=== PATIENT | female | born 1950 | race Caucasian/White ===

== ENCOUNTER 2023-07-15 06:26 | Inpatient (IN) | payer MEDICARE, OTHER, SELFPAY ==
[2023-07-15] VITALS (17 sets, daily range): BP systolic 20–161; BP diastolic 54–135; BMI 27.7
[2023-07-15 10:02] LABS: Glucose - Point of Care 159 mg/dl (70-99)
[2023-07-15] MEDS: NORMOSOL-R 1000 IV (10:04)
--- NOTE | 2023-07-15 10:24 | W.SUR.PREOP ---
Pre-Operative Surgical Note
-
I have examined this patient prior to the performance of the scheduled procedure.
The patient's condition is unchanged from the time of the current History and
Physical and the patient is able to undergo the scheduled procedure.
--- NOTE | 2023-07-15 12:01 | W.IMMPOSTOP ---
Surgical Immed Post Op Note
-
Primary Surgeon: BETSY Mandujano MD
Assisting Surgeon:
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
Post-op Diagnosis: same
Procedure Performed: sternal wound debridement, removal of hardware, bilateral pectoralis muscle flaps, partial rib resection,
Anesthesia Type: General
Specimen / Cultures: fluid and tissue for culture
EBL: 30 cc
complications: None
Operative Findings: as expected
--- NOTE | 2023-07-15 12:03 | OR.RPT ---
Operative Report
Operative Report
Surgeon: BETSY Mandujano MD
Preoperative diagnosis: Recurrent sternal infection
Postoperative diagnosis: Same
Procedure:
1. Debridement of sternum with removal of plates and screws, wire
2. Partial rib resection
3. Bilateral pectoralis muscle flaps
Anesthesia: General
Complications: None
EBL: 30 cc
Microbiology: Bone for culture, tissue for culture, aerobic and anaerobic swabs
Indications for procedure: Patient is a multiply comorbid 73-year-old female who underwent prior CABG complicated by sternal wound dehiscence. She required multiple debridements, removal of hardware, and ultimately flap reconstruction of the chest.
Culture data grew out Pseudomonas and E. coli. She underwent 6 weeks of IV antibiotic therapy. She followed a routine course thereafter and healed well. She presented in the office with a draining sinus on the superior aspect of her sternotomy
incision. Discussion was had about need for debridement, removal of residual hardware, reelevation of pectoralis muscle flaps and Closure over drain. Consents were signed accordingly and all risks were reviewed. She understood she would likely
need another course of IV antibiotics for presumed osteomyelitis.
Procedure in detail: Patient was identified in the preoperative area and the surgical site was confirmed to be the chest. All questions answered consents were confirmed. Patient is taken back to the operating room placed supine on the table.
Anesthesia was induced and endotracheal tube was placed. The patient was prepped and draped in usual sterile fashion using Betadine solution. Timeout for patient safety was performed was confirmed that preoperative antibiotics were administered
and bilateral SCDs were placed. Procedure began first with the infiltration of local anesthesia with 1% lidocaine with epinephrine mixed with quarter percent Marcaine. An elliptical skin excision was drawn around the midline sinus on the superior
aspect of the prior sternotomy scar. This was incised with a 15 blade and dissection continued around the dura and the sinus to the level of the sternum using Bovie electrocautery. At the base of the sinus was a titanium plate with 4 screws. Just
superior to this was a residual wire. These were both removed and a debridement was performed by removing all granulation tissue. Culture swabs were taken and both bone and tissue were sent for culture. A rongeur was then used to remove the bone
of the manubrium. Inspection of the wound bed showed that a right third rib showed evidence of chronic osteomyelitis. As such a partial rib resection was performed removing all devitalized bone. The wound was then thoroughly irrigated with 6 L of
normal saline solution. Meticulous hemostasis was ensured and bilateral pectoralis muscle flaps were raised off of the chest wall. This allowed for medial mobilization of the bilateral pectoralis muscles over the midline to cover the exposed bone.
Space and sutured at the skin with a 2-0 Prolene. The muscles were closed at the midline with a series of 0 Vicryl sutures. The deep closure was then performed with a series of 2-0 Vicryl sutures followed by 2-0 nylon sutures for vertical
mattress skin closure. Patient tolerated the procedure well was performed without complication.
[2023-07-15 12:23] LABS: Glucose - Point of Care 158 mg/dl (70-99)
[2023-07-15] MEDS: TORADOL 15 MG IV (12:51)
[2023-07-15] MEDS: DILAUDID 0.25 MG IV (13:05)
--- NOTE | 2023-07-15 14:11 | CON.ID ---
Consultation
-
Date/Time Consultation Requested: 07/15/2023 1207
Date/Time Consultation Performed: 07/15/23 1330
Requesting Provider: Dr. Mandujano
Performing Provider: Dr. Gregory
Reason for Consultation: Sternal infection
Chief Complaint / Past History
History of Present Illness
Tish Montero is a 73-year-old female being evaluated at the request of Dr. Mandujano regarding a sternal wound and suspected osteomyelitis. History is obtained from chart review, along with patient interview.
The patient has a significant past medical history of diabetes and underwent a CABG on 10/22/2022. She had postop complication with atrial fibrillation, ultimately requiring a pacemaker placement. She was discharged on October 26, 2022, but readmitted
on 11/13 through 11/15 with an inframammary wound, and a small inferior sternal wound. She was readmitted on 11/21 and ultimately underwent debridement of the area, with a discharge on 12/03 on a 6-week course of IV antibiotics. On 12/25/2022 she
underwent excisional debridement with VAC placement, and on 01/07/2023 she underwent an omental flap with split thickness skin grafting and further bone debridement.
She reports that she was doing well until approximately 1 week ago when she developed swelling at the top of her prior incision. Initially it was dime sized, but it became progressively swollen, red and somewhat tender. She was seen in cardiac
rehab, and physical therapy there suggested that she call her Plastic Surgeon. She sent pictures, and she was brought in yesterday, and today has undergone complete removal of retained hardware and bone debridement and culture.
She reports 1 or 2 episodes of fever last week. Otherwise, she has felt well.
Past History
Additional Past Medical History:
DM
HTN
CARLOS
Asthma
CAD
Fibromyalgia
Restless leg syndrome
Additional Past Surgical History:
CABG (10/22/2022
PPM placement (10/24/2022)
Right humerus ORIF
Right TKA
Right shoulder replacement
Thyroglossal duct cyst excision
Allergy History:
peach Allergy (Verified 07/15/23 09:46)
Itching
strawberry Allergy (Verified 07/15/23 09:46)
Itching
Sulfa (Sulfonamide Antibiotics) Allergy (Verified 07/15/23 09:46)
Hives
Medications Reviewed: Yes
Current Antibiotics:
Cefazolin x1
Social History
Tobacco: Non-Smoker
Drug: None
Personal:
Living: With Family
Employment: Retired
Family History
Family History: Not Pertinent
Review of Systems
Vital Signs
Temp Pulse Resp BP Pulse Ox
97.3 F 76 17 141/61 98
07/15/23 12:01 07/15/23 13:45 07/15/23 13:45 07/15/23 13:45 07/15/23 13:45
Physical Exam
Physical Exam
Constitutional: No Acute Distress and Non-toxic
Head: Normocephalic
Eyes: Pupils Equal, Pupils Round, No Conjunctival Hemorrhage and Sclera Anicteric
Oral: No Thrush and No Ulcers
Cardiovascular: Regular Rate and S1/S2; Negative S3/S4
Pulmonary: Clear; Negative Wheezes, Rales or Rhonchi
Gastrointestinal: Soft, Non Tender, Non Distended, Normal Bowel Sounds and No Guarding
Extremities: Negative Edema, Cyanosis or Erythema
Wound: Other (Sternal wound area dressed. No strikethrough.)
Neurological: Awake, Alert and Oriented
Microbiology Results
Micro:
07/15/23 11:04 Wound Culture - Pending
Chest - Unspecified Gram Stain - Pending
07/15/23 11:04 Tissue Culture - Pending
Chest - Unspecified Gram Stain - Pending
07/15/23 11:04 Tissue Culture - Pending
Bone Gram Stain - Pending
07/15/23 11:04 Anaerobic Culture - Pending
Chest - Unspecified
07/15/23 11:04 Anaerobic Culture - Pending
Chest Fluid
07/15/23 11:04 Anaerobic Culture - Pending
Bone
Wound/abscess/other Cult Final 11/21/22 1637
Moderate Pseudomonas aeruginosa
Moderate Escherichia coli
1. Pseudomonas aeruginosa
M.I.C. RX
--------- ---
Cefepime <=2 S
Ceftazidime 4 S
Ciprofloxacin 2 R
Gentamicin <=4 S
Levofloxacin 4 R
Meropenem <=1 S
Piperacillin/Tazobactam <=16 S
Tobramycin <=4 S
2. Escherichia coli
M.I.C. RX
--------- ---
Amoxicillin/Potas. Clavulanate <=8/4 S
Ampicillin <=8 S
Ampicillin/Sulbactam <=8/4 S
Cefazolin <=2 S
Ertapenem <=0.5 S
Ciprofloxacin <=0.25 S
Gentamicin <=4 S
Levofloxacin <=0.5 S
Meropenem <=1 S
Piperacillin/Tazobactam <=16 S
Tobramycin <=4 S
Trimethoprim/Sulfamethoxazole <=2/38 S
Assessment / Plan
Sternal wound
- S/p removal of hardware and bone debridement
Suspected recurrent osteomyelitis
DM
HTN
CARLOS
Asthma
CAD
Fibromyalgia
Restless leg syndrome
Recommendations:
Prior wound cultures reviewed (Pseudomonas aeruginosa and E. coli)
Begin cefepime 2 g IV every 12 hours.
Await further culture data to guide antimicrobial therapy.
Await bone pathology.
Counseled patient that an additional 6-week course of antibiotics may be necessary in the treatment of this infection.
--- NOTE | 2023-07-15 14:33 | PTCARENOTE ---
Patient admitted from pacu post debridement of chest wall sternal wound with hardware removal.The patient is alert and reports her pain at a 4 out of 10.The chest wall dressing is dry and intact with no drainage.Vital signs are stable.The patient is
in her bed with the call mann in reach.
[2023-07-15] MEDS: ULTRAM 50 MG PO (16:38)
[2023-07-15] MEDS: STERILE WATER FOR INJECTION 10 ML IV (16:40)
[2023-07-15] MEDS: MAXIPIME 2000 MG IV (16:40)
[2023-07-15] MEDS: FLUSH (NSS) 2 FLUSH IV (16:41)
[2023-07-15 16:44] LABS: Glucose - Point of Care 252 mg/dl (70-99)
--- NOTE | 2023-07-15 16:49 | CON.HOSP ---
Consultation
-
Date/Time Consultation Requested: 07/15/23
Requesting Provider: Dr Mandujano
Performing Provider: Dr Barrientos
Reason for Consultation: Medical manegement
Family Physician
-
Family Physician: NO INTERVIEW UNKNOWN
Chief Complaint
-
Sternal infection.
Presented for wound debridement
History of Present Illness
Patient is a 73 years old female with history of CAD status post CABG with wound dehiscence in October of 2022 she had postoperative complication with atrial fibrillation requiring pacemaker placement. She had to be readmitted in November 2022 with
complications including wound dehiscence. She underwent debridement and was discharged on 6 weeks of antibiotic therapy. She underwent additional debridement on December 2022 followed with wound VAC and omental flap with split-thickness skin
grafting.
She was doing well up until about a week ago when patient found to have erythema and induration in the middle of the sternum with fluctuance. Area was progressively swollen with later self drained with purulence. She reported single episode of
chills at home, although had no documented fever. She was seen in the office by plastic surgery and given findings were scheduled for admission and elective wound debridement. Otherwise patient remains relatively well in terms of her cardiac
status undergoing cardiac rehab.
She underwent wound debridement today with complete hardware removal.
Medical History
Past Medical History
Past Medical History: Reports Arrhythmia, CAD, Fibromyalgia and NIDDM
Past Surgical History: Reports Cardiac
Social History
Tobacco: Non-smoker
Alcohol: None
Drug: None
Personal:
Living: With Family
Allergies / Home Medications
Allergies reflects when Allergies were last updated in [facility].
Home Medications with original date entered in [facility]
Allergy/Medication List:
Allergies
Allergy/AdvReac Type Severity Reaction Status Date / Time
peach Allergy Itching Verified 07/15/23 09:46
strawberry Allergy Itching Verified 07/15/23 09:46
Sulfa (Sulfonamide Allergy Hives Verified 07/15/23 09:46
Antibiotics)
Home Medications
cyclobenzaprine 10 mg tablet 20 mg PO HS Pain 10/02/22
ezetimibe 10 mg tablet 10 mg PO DAILY High Cholesterol 10/02/22
fexofenadine 180 mg tablet 180 mg PO DAILY Allergies 10/02/22
isosorbide mononitrate 30 mg tablet,extended release 24 hr 30 mg PO DAILY Blood Pressure 10/02/22
latanoprost 0.005 % eye drops 1 drp BOTH EYES HS Eye Condition 10/02/22
montelukast 10 mg tablet (Singulair) 10 mg PO DAILY Allergies 10/02/22
omega-3 acid ethyl esters 1 gram capsule (Lovaza) 1 cap PO QPM High Cholesterol 10/02/22
ropinirole 0.25 mg tablet 1.5 mg PO DAILY@1900 Restless Leg Syndrome 10/02/22
acetaminophen 500 mg tablet (Tylenol Extra Strength) 1,000 mg PO Q6HPRN PRN mild pain 10/16/22
cholecalciferol (vitamin D3) 50 mcg (2,000 unit) capsule (Vitamin D3) 50 mcg PO DAILY Supplement 10/16/22
vit C 250 mg-vit E 90 mg-zinc 40 mg-copper 1 qy-[id number]-nibzgd capsule (PreserVision AREDS-2) 1 cap PO BID Supplement 10/16/22
albuterol sulfate 90 mcg/actuation aerosol inhaler 2 puff inhalation R QIDPRN PRN sob/wheezing 11/13/22
pantoprazole 40 mg tablet,delayed release 40 mg PO DAILY Gastrointestinal Issue 12/02/22
aspirin 81 mg tablet,delayed release 81 mg PO DAILY Blood Clot Prevention/Tx 01/07/23
atorvastatin 80 mg tablet 80 mg PO HS High Cholesterol 01/07/23
metoprolol tartrate 25 mg tablet 12.5 mg PO BID Blood Pressure 01/07/23
canagliflozin 150 mg-metformin 1,000 mg tablet (Invokamet) 1 tab PO BID Diabetes 07/14/23
cyanocobalamin (vitamin B-12) 1,000 mcg/mL injection solution 1,000 mcg IM QMONTH Vitamin B-12 deficiency 07/14/23
ferrous sulfate 325 mg (65 mg iron) tablet (FeroSul) 325 mg PO DAILY Supplement 07/14/23
fluticasone propionate 50 mcg/actuation nasal spray,suspension (Flonase Allergy Relief) 1 spray intranasal DAILY Allergies 07/14/23
glimepiride 2 mg tablet 2 mg PO QPM Diabetes 07/14/23
glimepiride 4 mg tablet 4 mg PO DAILY Diabetes 07/14/23
polyethylene glycol 3350 17 gram oral powder packet (HealthyLax) 17 g PO PRN PRN constipation 07/14/23
potassium chloride 20 mEq tablet,extended release 20 meq PO DAILY 07/14/23
tramadol 50 mg tablet 100 mg PO TID 07/14/23
furosemide 40 mg tablet 40 mg PO DAILY Fluid Retention/Swelling 07/15/23
Review of Systems
-
A 12 point Review of Systems was completed except as noted: Yes
Physical Exam
Vital Signs
Vital Signs
Temp Pulse Resp BP Pulse Ox
98.4 F 81 16 139/67 96
07/15/23 15:23 07/15/23 15:23 07/15/23 15:23 07/15/23 15:23 07/15/23 14:30
Physical Exam
General: Well Developed, Well Nourished and No Apparent Distress
HEENT: Normocephalic, Moist Mucous Membranes and Atraumatic
Respiratory: Clear
Cardiac: S1/S2 and Regular Rhythm; Negative Murmur or Rub
GI: Soft, Non Tender, Non Distended and Normal Bowel Sounds
Rectal: Deferred by Provider
Musculoskeletal: No Clubbing, No Cyanosis and No Edema
Skin: Negative Rash
Neuro: Nonfocal/Grossly Intact
Impression / Plan
-
Impression:
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
Status post debridement and hardware removal on 07/14
Conditions prior to admission:
CAD status post CABG x 4 10/27
Postoperative pericarditis
Postoperative atrial fibrillation with sinus pauses requiring pacemaker on 10/27
Chronic CHF preserved EF.
-ECHO 10/24/22: EF 55 to 60%, mild concentric LVH, mild , mild TR, no significant change compared to prior
Known IDDM.
Hypertension
Dyslipidemia
Obesity
Obstructive sleep apnea on CPAP.
Fibromyalgia
Asthma without exacerbation
Pratt esophagus
Plan:
Recurrent sternal wound infection with osteomyelitis
Status postdebridement on 07/14
Prior culture from 11/27 consistent with Pseudomonas and E. coli
ID consulted
Initiated on cefepime.
Continue wound care.
Coronary artery disease.
Stable
Continue aspirin, atorvastatin, metoprolol, Imdur
Chronic CHF preserved EF.
Compensated volume status.
Continue furosemide and potassium supplementation.
Monitor volume status closely
Asthma without exacerbation
Continue Singulair
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
Fibromyalgia, chronic pain
Adjust analgesic regimen accordingly
Continue Tylenol, tramadol wean off IV narcotics.
Diabetes
Update hemoglobin A1c.
Basal bolus protocol for tight blood glucose control regimen in the settings of recurrent infection
Continue preadmission regimen including Invokana, metformin, glimepiride.
[2023-07-15] MEDS: NOVOLOG FLEXPEN-LOW RESISTANCE 3 UNITS SC (16:55)
[2023-07-15] MEDS: TYLENOL 1000 MG PO (18:33)
[2023-07-15] MEDS: SINGULAIR 10 MG PO (18:33)
[2023-07-15] MEDS: PROTONIX 40 MG PO (18:33)
[2023-07-15] MEDS: IMDUR (EXTENDED RELEASE) 30 MG PO (18:33)
[2023-07-15] MEDS: REQUIP 1.5 MG PO (18:34)
[2023-07-15] MEDS: AMARYL 2 MG PO (18:34)
[2023-07-15] MEDS: LOPRESSOR 12.5 MG PO (20:35)
[2023-07-15 21:08] LABS: Glucose - Point of Care 358 mg/dl (70-99)
[2023-07-15] MEDS: NOVOLOG FLEXPEN 5 UNITS SC (21:49)
[2023-07-15] MEDS: XALATAN OPHTHALMIC SOLUTION 1 DROP BOTH EYES (22:05)
[2023-07-15] MEDS: FLEXERIL 20 MG PO (22:05)
[2023-07-15] MEDS: LIPITOR 80 MG PO (22:05)
[2023-07-15 23:53] LABS: Glucose - Point of Care 337 mg/dl (70-99)
[2023-07-16] VITALS (7 sets, daily range): BP systolic 132–156; BP diastolic 56–82; PULSE 80; BMI 28.2
[2023-07-16] MEDS: NOVOLOG FLEXPEN 5 UNITS SC (00:04)
[2023-07-16] MEDS: TYLENOL 1000 MG PO ×5 (00:05→23:26)
[2023-07-16 02:04] LABS: Glucose - Point of Care 273 mg/dl (70-99)
--- NOTE | 2023-07-16 02:10 | PTCARENOTE ---
Patient blood sugar at HS '358', Kermit Aldridge notified, 5 units Novolog ordered and administered; rechecked blood sugar in 2 hours with result '337', Kermit Gloria ordered additional 5 units Novolog and was administered; rechecked
blood sugar in 2 hours with result '273'; no new orders.
[2023-07-16] MEDS: TORADOL 15 MG IV (03:37)
[2023-07-16] MEDS: MAXIPIME 2000 MG IV ×2 (04:11→16:27)
[2023-07-16] MEDS: STERILE WATER FOR INJECTION 10 ML IV ×2 (04:11→16:27)
[2023-07-16 07:27] LABS: Glucose - Point of Care 255 mg/dl (70-99)
[2023-07-16] MEDS: NOVOLOG FLEXPEN-LOW RESISTANCE 3 UNITS SC (08:16)
[2023-07-16] MEDS: LOPRESSOR 12.5 MG PO ×2 (08:17→20:35)
[2023-07-16] MEDS: ZETIA 10 MG PO (08:17)
[2023-07-16] MEDS: PROTONIX 40 MG PO (08:17)
[2023-07-16] MEDS: FEOSOL 325 MG PO (08:17)
[2023-07-16] MEDS: AMARYL 4 MG PO (08:17)
[2023-07-16] MEDS: KCL 20 MEQ PO (08:17)
[2023-07-16] MEDS: LASIX 40 MG PO (08:17)
[2023-07-16] MEDS: IMDUR (EXTENDED RELEASE) 30 MG PO (08:17)
[2023-07-16] MEDS: ASPIR LOW (ENTERIC COATED) 81 MG PO (08:17)
[2023-07-16] MEDS: SINGULAIR 10 MG PO (08:18)
[2023-07-16] MEDS: VITAMIN D3 (cholecalciferol) 50 MCG PO (08:18)
[2023-07-16 09:40] LABS: Glycohemoglobin (HgbA1c) 7.9 % (4.0-5.6)
--- NOTE | 2023-07-16 10:16 | W.PN.ID1 ---
Date of Service
Date of Service: July 16, 2023
Today's Communication
Continue antibiotics. Add micafungin.
Assessment / Plan
Sternal wound
- S/p removal of hardware and bone debridement
- cultures pending
Suspected recurrent osteomyelitis
DM
HTN
CARLOS
Asthma
CAD
Fibromyalgia
Restless leg syndrome
Recommendations:
Prior wound cultures reviewed (Pseudomonas aeruginosa and E. coli)
Continue cefepime 2 g IV every 12 hours. Given recovery of Jyoti, will begin micafungin.
Await further culture data to guide antimicrobial therapy.
Await bone pathology.
Counseled patient that an additional 6-week course of antibiotics may be necessary in the treatment of this infection.
����������������������������������������������������������
Chief Complaint
-: Other (Sternal wound)
Subjective / Review of Systems
Review of Systems: No Fever and No Chills
Vital Signs / Physical Exam
Vital Signs
Vital Signs
Temp Pulse Resp BP Pulse Ox
97.8 F 70 17 133/56 96
07/16/23 07:00 07/16/23 07:00 07/16/23 07:00 07/16/23 07:00 07/16/23 07:00
Physical Exam
Constitutional: No Acute Distress, Comfortable and Non-toxic
Eyes: Sclera Anicteric
Cardiovascular: S1/S2; Negative S3/S4
Pulmonary: Non Labored
Gastrointestinal: Soft, Non Tender, Non Distended and Normal Bowel Sounds
Skin: Warm and Dry
Wound: Other (Sternal wound area dressed. No periwound erythema noted.)
Neurological: Awake and Alert
Psychological: Calm
Objective Data
Lab Data
Most recent labs reviewed.
Micro Results:
07/15/23 11:04 Tissue Culture - Preliminary
Chest - Unspecified Gram Stain - Final
07/15/23 11:04 Anaerobic Culture - Preliminary
Chest - Unspecified Culture pending. Anaerobic cultures are examined after 3
days incubation. Additional information to follow.
07/15/23 11:04 Anaerobic Culture - Preliminary
Bone Culture pending. Anaerobic cultures are examined after 3
days incubation. Additional information to follow.
07/15/23 11:04 Tissue Culture - Preliminary
Bone Jyoti albicans
Gram Stain - Preliminary
07/15/23 11:04 Anaerobic Culture - Preliminary
Chest Fluid Culture pending. Anaerobic cultures are examined after 3
days incubation. Additional information to follow.
07/15/23 11:04 Wound Culture - Preliminary
Chest - Unspecified No growth
Gram Stain - Preliminary
Wound/abscess/other Cult Final 11/21/22 1637
Moderate Pseudomonas aeruginosa
Moderate Escherichia coli
1. Pseudomonas aeruginosa
M.I.C. RX
--------- ---
Cefepime <=2 S
Ceftazidime 4 S
Ciprofloxacin 2 R
Gentamicin <=4 S
Levofloxacin 4 R
Meropenem <=1 S
Piperacillin/Tazobactam <=16 S
Tobramycin <=4 S
2. Escherichia coli
M.I.C. RX
--------- ---
Amoxicillin/Potas. Clavulanate <=8/4 S
Ampicillin <=8 S
Ampicillin/Sulbactam <=8/4 S
Cefazolin <=2 S
Ertapenem <=0.5 S
Ciprofloxacin <=0.25 S
Gentamicin <=4 S
Levofloxacin <=0.5 S
Meropenem <=1 S
Piperacillin/Tazobactam <=16 S
Tobramycin <=4 S
Trimethoprim/Sulfamethoxazole <=2/38 S
--- NOTE | 2023-07-16 11:16 | CM ---
CM following re: discharge planning.
Reviewed pt's chart, met with pt.
Pt is a 73 year old female, admitted with primary dx of POD#1 wound debridement with complete hardware removal.
Pt reports she livers with in a ranch home, 2 steps to enter, has 2 supportive children. Pt described herself as independent in all areas [employer], ambulates with a cane and a walker, has C-pap. Pt reports she is known to [facility] but had
[facility]. Pt stated if she will need IV antibiotics again at home then she has no choice just to have [facility]. Per pt if she does not need IV antibiotics at home then she prefers [facility].
PCP: Drea
Pharmacy: [facility]
D/C plan: home with VN and family support. Family to transport at discharge.
CM will follow with discharge plan updates as hospitalization progresses
--- NOTE | 2023-07-16 11:37 | PN.CDI ---
CDI
- -
CDI:
Physician Documentation Request
Admit Date: 07/15/23 06:26
Dear Doctor Nazia,
Please review the following and provide your response in the progress notes.
Clinical Indicators:
- 07/14 Operative Report procedure 'Debridement of sternum'
- 'a debridement was performed by removing all granulation tissue'
Could you provide, in the progress notes further clarification regarding the debridement.
Please specify the type of debridement performed:
1. Excisional Debridement - defined as removal by excision of devitalized tissue, necrosis or slough
2. Non-excisional debridement - defined as removal of devitalized tissue, necrosis or slough by such methods as irrigation, brushing, scrubbing or washing.
If the debridement was excisional, please also include:
1. Type of instrument used (#11 blade, #15 blade etc.)
2. What was excised (necrotic tissue, gangrenous tissue, slough etc.)
For excisional or non-excisional, please also include:
1. Depth of debridement (skin, subcutaneous tissue, fascia, muscle, bone etc)
2. Size and appearance of the wound (L, W, D, color of wound, drainage)
Use of terms such as suspected, likely, concern for, or probable (associated with a specific diagnosis that is being evaluated, monitored, or treated as if it exists) are acceptable and can be coded in the inpatient setting, when documented at the
time of discharge.
Thank you,
Kelly Carr RN
CDI Specialist
Please use your independent medical judgment in providing your response.
--- NOTE | 2023-07-16 11:47 | W.PN.PLAS ---
Today's Communication
-
discharge pending final micro
Progress Note
Subjective Data
Doing well, pain well-controlled, ambulating
Subjective: Tolerating Regular Diet, Ambulatory and Patient Voided
Objective Data
Vital Signs
Temp Pulse Resp BP Pulse Ox
97.8 F 70 17 133/56 96
07/16/23 07:00 07/16/23 07:00 07/16/23 07:00 07/16/23 07:00 07/16/23 07:00
Intake and Output
07/15/23 07/16/23 07/17/23
06:59 06:59 06:59
Intake Total 1840 / 1840 240 / 240
Output Total 65 / 65
Balance 1775 / 1775 240 / 240
Intake:
Oral fluids 1440 / 1440 240 / 240
IV fluids (Total) 400 / 400
Normosol 400 / 400
Amount instilled into Drain ( 0 / 0
Total)
Middle Chest Richardson-Reilly A 0 / 0
Output:
Drain Output (Total) 65 / 65
Middle Chest Richardson-Reilly A 65 / 65
Other:
Number of approximated MODERATE 3 1
amounts of urine
Number of approximated LARGE 1
amounts of urine
physical exam:
No acute distress
No increased work of breathing
Midline sternal wound intact with dressing in place
JURGEN drain serosanguineous
No undrained fluid collections
Microbiology Results
07/15/23 11:04 Chest - Unspecified Tissue Culture - Preliminary
07/15/23 11:04 Chest - Unspecified Gram Stain - Final
07/15/23 11:04 Chest - Unspecified Anaerobic Culture - Preliminary
Culture pending. Anaerobic cultures are examined after 3
days incubation. Additional information to follow.
07/15/23 11:04 Bone Anaerobic Culture - Preliminary
Culture pending. Anaerobic cultures are examined after 3
days incubation. Additional information to follow.
07/15/23 11:04 Bone Tissue Culture - Preliminary
Jyoti albicans
07/15/23 11:04 Bone Gram Stain - Preliminary
07/15/23 11:04 Chest Fluid Anaerobic Culture - Preliminary
Culture pending. Anaerobic cultures are examined after 3
days incubation. Additional information to follow.
07/15/23 11:04 Chest - Unspecified Wound Culture - Preliminary
No growth
07/15/23 11:04 Chest - Unspecified Gram Stain - Preliminary
Assessment / Plan
Status post sternal wound debridement for recurrent presumed osteomyelitis secondary to hardware infection after CABG complicated by wound dehiscence, status post prior omental flap closure
underwent excisional debridement of the sternum including partial rib resection and removal of hardware including 1 plate and 4 screws as well as 1 wire
Micro culture sent
ID following
Hospitalist on board
Awaiting final antibiotic recommendations and coordination for likely long-term antibiotics
[2023-07-16 12:23] LABS: Glucose - Point of Care 312 mg/dl (70-99)
[2023-07-16] MEDS: NOVOLOG FLEXPEN-LOW RESISTANCE 4 UNITS SC ×2 (12:27→17:18)
[2023-07-16] MEDS: LANTUS 0.0700000000000000067 UNITS SC (12:28)
[2023-07-16] MEDS: MYCAMINE 105 MG IV (13:24)
[2023-07-16 14:10] LABS: % Basophils 0.4 % (0-2); % Immature Granulocytes 0.4 % (0-0.5); % Lymphocytes 19.3 % (20.5-51.1); % Monocytes 11.9 % (1.7-9.3); Absolute Eosinophils 0.2 10^3/uL (0-0.7); Absolute Lymphocytes 1.9 10^3/uL (1.2-3.4); Absolute Monocytes 1.2 10^3/uL (0.1-0.6); Absolute Neutrophils 6.6 10^3/uL (1.4-6.5); Hematocrit 33.8 % (37.0-47.0); Hemoglobin 10.3 g/dL (12.0-16.0); Mean Corp Hgb Conc. 30.5 g/dL (33.0-37.0); Mean Corpuscular Hgb 22.9 pg (27.0-31.0); Mean Corpuscular Volume 75.1 fL (81.0-99.0); Mean Platelet Volume 9.5 fL (7.4-10.4); Nucleated Red Blood Cells % 0 %; Platelet Count 275 10^3/uL (130-400); Red Cell Dist. Width 20.2 % (11.5-14.5); White Blood Cell Count 9.9 10^3/uL (4.8-10.8)
[2023-07-16 14:20] LABS: Blood Urea Nitrogen 26 mg/dl (7-17); Calcium 9.7 mg/dl (8.4-10.2); Carbon Dioxide 23 mmol/L (22-30); Chloride 100 mmol/L (98-107); Estimated Creatinine Clearance 51 ml/min; Glucose 294 mg/dl (70-99); Potassium 4.7 mmol/L (3.5-5.1); Sodium 133 mmol/L (135-145); eGFR 58.75
--- NOTE | 2023-07-16 15:52 | W.PN.HOSP.TC ---
Today's Communication/Plan
-
On IV antibiotics pending final cultures
Persistent hyperglycemia noted. Continue current oral regimen with addition of Lantus adjusting dose accordingly.
Assessment / Plan
Assessment / Plan
Impression:
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
Status post debridement and hardware removal on 07/14
Conditions prior to admission:
CAD status post CABG x 4 10/27
Postoperative pericarditis
Postoperative atrial fibrillation with sinus pauses requiring pacemaker on 10/27
Chronic CHF preserved EF.
-ECHO 10/24/22: EF 55 to 60%, mild concentric LVH, mild , mild TR, no significant change compared to prior
Known IDDM.
Hypertension
Dyslipidemia
Obesity
Obstructive sleep apnea on CPAP.
Fibromyalgia
Asthma without exacerbation
Pratt esophagus
Plan:
Recurrent sternal wound infection with osteomyelitis
Status postdebridement on 07/14
Prior culture from 11/27 consistent with Pseudomonas and E. coli
Preliminary wound culture with Jyoti albicans
Initiated on cefepime with addition of micafungin
Continue wound care.
Coronary artery disease.
Stable
Continue aspirin, atorvastatin, metoprolol, Imdur
Chronic CHF preserved EF.
Compensated volume status.
Continue furosemide and potassium supplementation.
Monitor volume status closely
Asthma without exacerbation
Continue Singulair
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
Fibromyalgia, chronic pain
Adjust analgesic regimen accordingly
Continue Tylenol, tramadol wean off IV narcotics.
Diabetes
Persistent hyperglycemia noted
Update hemoglobin A1c. 7.9
Basal bolus protocol for tight blood glucose control regimen in the settings of recurrent infection
Continue preadmission regimen including Invokana, metformin, glimepiride.
And Lantus at bedtime and titrate dose
Anticipated Discharge: 24 - 48 hours
Subjective/Interval History
-
Date of Service: July 16, 2023
Objective Data
-
Labs:
Laboratory Results
07/16/23
13:46
WBC 9.9
Hgb 10.3 L
Hct 33.8 L
Plt Count 275
Sodium 133 L
Potassium 4.7
Chloride 100
Carbon Dioxide 23
BUN 26 H
Creatinine 1.0
Glucose 294 H
Calcium 9.7
Vital Signs:
Vital Signs
Temp Pulse Resp BP Pulse Ox
97.9 F 70 17 140/61 96
07/16/23 14:55 07/16/23 14:55 07/16/23 14:55 07/16/23 14:55 07/16/23 14:55
I&O
07/15/23 07/16/23 07/17/23
06:59 06:59 06:59
Intake Total 1840 / 1840 240 / 240
Output Total 65 / 65
Balance 1775 / 1775 240 / 240
Physical Exam
-
General: Well Developed and No Apparent Distress
HEENT: Normocephalic, Atraumatic and Moist Mucous Membranes
Respiratory: Clear to Auscultation
Cardiac: Regular Rhythm and S1/S2; Negative Murmur, Rub or Gallop
GI: Soft, Nontender, Nondistended and Normal Bowel Sounds; Negative Organomegaly
Rectal: Deferred by Provider
Musculoskeletal: No Clubbing, No Cyanosis and No Edema
Skin: Negative Rash
Neuro: Nonfocal/Grossly Intact
[2023-07-16 17:20] LABS: Glucose - Point of Care 333 mg/dl (70-99)
[2023-07-16] MEDS: AMARYL 2 MG PO (17:21)
[2023-07-16] MEDS: ULTRAM 50 MG PO (17:24)
[2023-07-16] MEDS: REQUIP 1.5 MG PO (18:37)
--- NOTE | 2023-07-16 20:30 | PTCARENOTE ---
Received pt from [facility]; Ariejoe orders, VSS, no c/o pain at this time. Sternal dressing C/D/I. x1 JURGEN drain in place. Patient ambulating unit. Plan of care discussed with patient.
[2023-07-16 21:09] LABS: Glucose - Point of Care 350 mg/dl (70-99)
[2023-07-16] MEDS: LIPITOR 80 MG PO (22:01)
[2023-07-16] MEDS: FLEXERIL 20 MG PO (22:01)
[2023-07-16] MEDS: XALATAN OPHTHALMIC SOLUTION 1 DROP BOTH EYES (22:01)
[2023-07-17] MEDS: ULTRAM 50 MG PO ×3 (00:29→23:17)
[2023-07-17] MEDS: MAXIPIME 2000 MG IV (03:01)
[2023-07-17] MEDS: STERILE WATER FOR INJECTION 10 ML IV (03:01)
[2023-07-17] MEDS: TYLENOL 1000 MG PO ×4 (05:30→23:17)
[2023-07-17 05:41] VITALS: BMI 27.8
[2023-07-17 06:36] VITALS: BP 116/65
[2023-07-17 08:09] LABS: Glucose - Point of Care 192 mg/dl (70-99)
[2023-07-17] MEDS: ZETIA 10 MG PO (09:09)
[2023-07-17] MEDS: VITAMIN D3 (cholecalciferol) 50 MCG PO (09:09)
[2023-07-17] MEDS: PROTONIX 40 MG PO (09:10)
[2023-07-17] MEDS: LASIX 40 MG PO (09:10)
[2023-07-17] MEDS: SINGULAIR 10 MG PO (09:10)
[2023-07-17] MEDS: AMARYL 4 MG PO (09:10)
[2023-07-17] MEDS: FEOSOL 325 MG PO (09:10)
[2023-07-17] MEDS: ASPIR LOW (ENTERIC COATED) 81 MG PO (09:10)
[2023-07-17] MEDS: KCL 20 MEQ PO (09:10)
[2023-07-17] MEDS: LOPRESSOR 12.5 MG PO ×2 (09:10→19:47)
[2023-07-17] MEDS: IMDUR (EXTENDED RELEASE) 30 MG PO (09:10)
[2023-07-17] MEDS: NOVOLOG FLEXPEN-LOW RESISTANCE 1 UNITS SC (09:11)
[2023-07-17] MEDS: LANTUS 0.0700000000000000067 UNITS SC (09:12)
[2023-07-17] MEDS: MYCAMINE 105 MG IV (12:02)
[2023-07-17 12:11] LABS: Glucose - Point of Care 329 mg/dl (70-99)
[2023-07-17] MEDS: NOVOLOG FLEXPEN-LOW RESISTANCE 4 UNITS SC (12:11)
--- NOTE | 2023-07-17 14:22 | W.PN.ID1 ---
Date of Service
Date of Service: July 17, 2023
Today's Communication
Continue antibiotics.
Assessment / Plan
Sternal wound
- S/p removal of hardware and bone debridement
-Cultures with Jyoti albicans alone.
Suspected recurrent osteomyelitis
DM
HTN
CARLOS
Asthma
CAD
Fibromyalgia
Restless leg syndrome
Recommendations:
Thus far, no bacteria isolated. Discontinue further cefepime.
Given recovery of Jyoti, continue micafungin. Will send isolate out for susceptibility.
Counseled patient that an additional 6-week course of antibiotics may be necessary in the treatment of this infection. Until full susceptibilities are known, would continue with micafungin.
Will place home infusion sheet on paper chart. PICC line can be placed.
����������������������������������������������������������
Chief Complaint
-: Other (Sternal wound)
Subjective / Review of Systems
Review of Systems: No Fever and No Chills
Vital Signs / Physical Exam
Vital Signs
Vital Signs
Temp Pulse Resp BP Pulse Ox
98.2 F 75 18 116/65 99
07/17/23 06:36 07/17/23 06:36 07/17/23 06:36 07/17/23 06:36 07/17/23 06:36
Physical Exam
Physical Exam:
Constitutional: No Acute Distress, Comfortable and Non-toxic
Eyes: Sclera Anicteric
Cardiovascular: S1/S2; Negative S3/S4
Pulmonary: Non Labored
Gastrointestinal: Soft, Non Tender, Non Distended and Normal Bowel Sounds
Skin: Warm and Dry
Wound: Other (Sternal wound area dressed. No periwound erythema noted.)
Neurological: Awake and Alert
Psychological: Calm
Objective Data
Lab Data
Lab Results
07/16/23 13:46
07/16/23 13:46
Estimated Creat Clear 51 ml/min 07/16/23 13:46
Most recent labs reviewed.
Micro Results:
07/15/23 11:04 Tissue Culture - Preliminary
Bone Jyoti albicans
Gram Stain - Preliminary
07/15/23 11:04 Anaerobic Culture - Preliminary
Chest - Unspecified Culture pending. Anaerobic cultures are examined after 3
days incubation. Additional information to follow.
07/15/23 11:04 Tissue Culture - Preliminary
Chest - Unspecified Jyoti albicans
Gram Stain - Final
07/15/23 11:04 Wound Culture - Preliminary
Chest - Unspecified No growth
Gram Stain - Preliminary
07/15/23 11:04 Anaerobic Culture - Preliminary
Bone Culture pending. Anaerobic cultures are examined after 3
days incubation. Additional information to follow.
07/15/23 11:04 Anaerobic Culture - Preliminary
Chest Fluid Culture pending. Anaerobic cultures are examined after 3
days incubation. Additional information to follow.
Wound/abscess/other Cult Final 11/21/22 1637
Moderate Pseudomonas aeruginosa
Moderate Escherichia coli
1. Pseudomonas aeruginosa
M.I.C. RX
--------- ---
Cefepime <=2 S
Ceftazidime 4 S
Ciprofloxacin 2 R
Gentamicin <=4 S
Levofloxacin 4 R
Meropenem <=1 S
Piperacillin/Tazobactam <=16 S
Tobramycin <=4 S
2. Escherichia coli
M.I.C. RX
--------- ---
Amoxicillin/Potas. Clavulanate <=8/4 S
Ampicillin <=8 S
Ampicillin/Sulbactam <=8/4 S
Cefazolin <=2 S
Ertapenem <=0.5 S
Ciprofloxacin <=0.25 S
Gentamicin <=4 S
Levofloxacin <=0.5 S
Meropenem <=1 S
Piperacillin/Tazobactam <=16 S
Tobramycin <=4 S
Trimethoprim/Sulfamethoxazole <=2/38 S
[2023-07-17 16:40] VITALS: BP 119/56
--- NOTE | 2023-07-17 16:41 | W.PN.HOSP.TC ---
Today's Communication/Plan
-
Remains on IV antibiotics and wound care.
Adjust insulin regimen
Assessment / Plan
Assessment / Plan
Impression:
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
Status post debridement and hardware removal on 07/14
Conditions prior to admission:
CAD status post CABG x 4 10/27
Postoperative pericarditis
Postoperative atrial fibrillation with sinus pauses requiring pacemaker on 10/27
Chronic CHF preserved EF.
-ECHO 10/24/22: EF 55 to 60%, mild concentric LVH, mild , mild TR, no significant change compared to prior
Known IDDM.
Hypertension
Dyslipidemia
Obesity
Obstructive sleep apnea on CPAP.
Fibromyalgia
Asthma without exacerbation
Pratt esophagus
Plan:
Recurrent sternal wound infection with osteomyelitis
Status postdebridement on 07/14
Prior culture from 11/27 consistent with Pseudomonas and E. coli
Preliminary wound culture with Jyoti albicans
Initiated on cefepime with addition of micafungin pending final sensitivities.
Plan is for home infusion with appropriate arrangements as per ID.
Continue wound care.
Coronary artery disease.
Stable
Continue aspirin, atorvastatin, metoprolol, Imdur
Chronic CHF preserved EF.
Compensated volume status.
Continue furosemide and potassium supplementation.
Monitor volume status closely
Asthma without exacerbation
Continue Singulair
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
Fibromyalgia, chronic pain
Adjust analgesic regimen accordingly
Continue Tylenol, tramadol wean off IV narcotics.
Diabetes
Persistent hyperglycemia noted
Update hemoglobin A1c. 7.9
Basal bolus protocol for tight blood glucose control regimen in the settings of recurrent infection
Continue preadmission regimen including Invokana, metformin, glimepiride.
Add Lantus at bedtime and titrate dose
Anticipated Discharge: 24 - 48 hours
Subjective/Interval History
-
Date of Service: July 17, 2023
Objective Data
-
Vital Signs:
Vital Signs
Temp Pulse Resp BP Pulse Ox
97.8 F 72 18 119/56 97
07/17/23 16:40 07/17/23 16:40 07/17/23 16:40 07/17/23 16:40 07/17/23 16:40
I&O
07/16/23 07/17/23 07/18/23
06:59 06:59 06:59
Intake Total 1839 / 1839 1979 / 1979 0 / 0
Output Total 65 / 65
Balance 1774 / 1774 0 / 0
Physical Exam
-
General: Well Developed and No Apparent Distress
HEENT: Normocephalic, Atraumatic and Moist Mucous Membranes
Respiratory: Clear to Auscultation
Cardiac: Regular Rhythm and S1/S2; Negative Murmur, Rub or Gallop
GI: Soft, Nontender, Nondistended and Normal Bowel Sounds; Negative Organomegaly
Rectal: Deferred by Provider
Musculoskeletal: No Clubbing, No Cyanosis and No Edema
Skin: Negative Rash
Neuro: Nonfocal/Grossly Intact
--- NOTE | 2023-07-17 16:45 | CM ---
met with patient who now needs 6 wks iv abx,sent referral to [facility] and spoke with nathalia.sent referral to [facility] for iv infusion and [facility] care.patient has a christine drain.pt is sp removal of hardware/bone debridementt. plan :discharge home on iv abx
and home care.
--- NOTE | 2023-07-17 17:19 | W.PN.PLAS ---
Today's Communication
-
PICC placement
Progress Note
Subjective Data
doing well
Subjective: Tolerating Regular Diet and Ambulatory
Objective Data
Vital Signs
Temp Pulse Resp BP Pulse Ox
97.8 F 72 18 119/56 97
07/17/23 16:40 07/17/23 16:40 07/17/23 16:40 07/17/23 16:40 07/17/23 16:40
Intake and Output
07/16/23 07/17/23 07/18/23
06:59 06:59 06:59
Intake Total 1840 / 1840 1979 / 1979 0 / 0
Output Total
Balance 1775 / 1775 1958 / 1958 0 / 0
Intake:
Oral fluids 1440 / 1440 1400 / 1400
IV fluids (Total) 400 / 400 480 / 480
Normosol 400 / 400
IV piggybacks 100 / 100
Amount instilled into Drain ( 0 / 0 0 / 0
Total)
Middle Chest Richardson-Reilly A 0 / 0 0 / 0
Output:
Drain Output (Total) /
Middle Chest Richardson-Reilly A /
Other:
Number of approximated MODERATE 3 4
amounts of urine
Number of approximated LARGE 1 1
amounts of urine
physical exam:
No acute distress
No increased work of breathing
Midline sternal wound intact
Sutures in place
JURGEN drain serosanguineous
Lab Results
07/16/23 13:46
07/16/23 13:46
Microbiology Results
07/15/23 11:04 Bone Tissue Culture - Preliminary
Jyoti albicans
07/15/23 11:04 Bone Gram Stain - Preliminary
07/15/23 11:04 Chest - Unspecified Anaerobic Culture - Preliminary
Culture pending. Anaerobic cultures are examined after 3
days incubation. Additional information to follow.
07/15/23 11:04 Chest - Unspecified Tissue Culture - Preliminary
Jyoti albicans
07/15/23 11:04 Chest - Unspecified Gram Stain - Final
07/15/23 11:04 Chest - Unspecified Wound Culture - Preliminary
No growth
07/15/23 11:04 Chest - Unspecified Gram Stain - Preliminary
Assessment / Plan
Status post sternal wound debridement with removal of hardware, bilateral pectoralis muscle flaps
Infectious disease following
Cultures growing Jyoti
Will need PICC and IV antibiotics
Discharge following
[2023-07-17 18:17] LABS: Glucose - Point of Care 413 mg/dl (70-99)
[2023-07-17] MEDS: AMARYL 2 MG PO (18:19)
[2023-07-17] MEDS: REQUIP 1.5 MG PO (18:19)
[2023-07-17 18:59] LABS: Glucose 368 mg/dl (70-99)
[2023-07-17] MEDS: NOVOLOG FLEXPEN-LOW RESISTANCE 5 UNITS SC (19:48)
[2023-07-17] MEDS: XALATAN OPHTHALMIC SOLUTION 1 DROP BOTH EYES (21:47)
[2023-07-17] MEDS: LIPITOR 80 MG PO (21:47)
[2023-07-17] MEDS: FLEXERIL 20 MG PO (21:47)
[2023-07-17 22:27] LABS: Glucose - Point of Care 355 mg/dl (70-99)
[2023-07-17 22:51] VITALS: BP 121/81
[2023-07-18] MEDS: TYLENOL 1000 MG PO ×2 (05:03→13:10)
[2023-07-18 05:26] VITALS: BMI 27.8
[2023-07-18 07:48] LABS: Glucose - Point of Care 199 mg/dl (70-99)
[2023-07-18 07:54] VITALS: BP 145/75
--- NOTE | 2023-07-18 09:05 | W.PN.PLAS ---
Today's Communication
-
Home today with VN, PICC
Progress Note
Subjective Data
doing well
Subjective: Tolerating Regular Diet and Ambulatory
Objective Data
Vital Signs
Temp Pulse Resp BP Pulse Ox
98 F 72 17 145/75 98
07/18/23 07:54 07/18/23 07:54 07/18/23 07:54 07/18/23 07:54 07/18/23 07:54
Intake and Output
07/17/23 07/18/23 07/19/23
06:59 06:59 06:59
Intake Total 1979 / 1979 960 / 960
Output Total
Balance 1958 / 1958 955 / 955
Intake:
Oral fluids 1400 / 1400 960 / 960
IV fluids (Total) 480 / 480
IV piggybacks 100 / 100
Amount instilled into Drain ( 0 / 0
Total)
Middle Chest Richardson-Reilly A 0 / 0
Output:
Drain Output (Total)
Middle Chest Richardson-Reilly A
Other:
Number of approximated MODERATE 4 2
amounts of urine
Number of approximated LARGE 1
amounts of urine
physical exam:
No acute distress
No increased work of breathing
Midline sternal wound intact
JURGEN drain serosanguineous
Lab Results
07/16/23 13:46
07/17/23 18:43
Microbiology Results
07/15/23 11:04 Bone Tissue Culture - Preliminary
Jyoti albicans
07/15/23 11:04 Bone Gram Stain - Preliminary
07/15/23 11:04 Chest - Unspecified Anaerobic Culture - Preliminary
Culture pending. Anaerobic cultures are examined after 3
days incubation. Additional information to follow.
07/15/23 11:04 Chest - Unspecified Tissue Culture - Preliminary
Jyoti albicans
07/15/23 11:04 Chest - Unspecified Gram Stain - Final
07/15/23 11:04 Chest - Unspecified Wound Culture - Preliminary
No growth
07/15/23 11:04 Chest - Unspecified Gram Stain - Preliminary
Assessment / Plan
Status post sternal wound debridement with removal of hardware, bilateral pectoralis muscle flaps
Infectious disease following
Cultures growing Jyoti
Will need PICC and IV antibiotics
Discharge following
--- NOTE | 2023-07-18 09:06 | W.DCSUMMARY ---
Discharge Summary
Discharge Data
Date of Admission: 07/15/23
Date of Discharge: 07/18/23
-
Pending Results: No
Hospital Course
Admitted following sternal debridement, hardware removal and pectoralis muscle flap reconstruction. Culture grew andrea, ID consulted. Will go home with PICC on [facility] IV antibiotics.
Discharged home with VN
Discharge Plan
-
Patient Disposition: Home (Routine Discharge)
Discharge Diagnosis/Procedures: s/p sternal wound reconstruction
Condition: Good
Diet: No restrictions
Activity: No strenuous activity
Driving Restrictions: As prior to admission
Bathing Restrictions: OK to Shower
Other Services: VN
Wound Care: Strip and record drain output daily
Referrals:
UNKNOWN,NO INTERVIEW [Family Provider] -
Prescriptions:
Continued
cyclobenzaprine 10 mg Tablet
20 mg PO HS
latanoprost 0.005 % Drops
1 drp BOTH EYES HS
isosorbide mononitrate 30 mg Tablet Extended Release 24 Hr
30 mg PO DAILY
fexofenadine 180 mg Tablet
180 mg PO DAILY
ropinirole 0.25 mg Tablet
1.5 mg PO DAILY@1900
montelukast [Singulair] 10 mg Tablet
10 mg PO DAILY
ezetimibe 10 mg Tablet
10 mg PO DAILY
omega-3 acid ethyl esters [Lovaza] 1 gram Capsule
1 cap PO QPM
acetaminophen [Tylenol Extra Strength] 500 mg Tablet
1,000 mg PO Q6HPRN PRN (Reason: mild pain)
cholecalciferol (vitamin D3) [Vitamin D3] 50 mcg (2,000 unit) Capsule
50 mcg PO DAILY
PreserVision AREDS-2 250-90-40-1 mg Capsule
1 cap PO BID
albuterol sulfate 90 mcg/actuation Hfa Aerosol Inhaler
2 puff inhalation R QIDPRN PRN (Reason: sob/wheezing)
pantoprazole 40 mg tablet,delayed release (DR/EC)
40 mg PO DAILY
aspirin 81 mg Tablet,Delayed Release (Dr/Ec)
81 mg PO DAILY
atorvastatin 80 mg tablet
80 mg PO HS
metoprolol tartrate 25 mg tablet
12.5 mg PO BID
tramadol 50 mg Tablet
100 mg PO TID
glimepiride 2 mg Tablet
2 mg PO QPM
ferrous sulfate [FeroSul] 325 mg (65 mg iron) Tablet
325 mg PO DAILY
glimepiride 4 mg Tablet
4 mg PO DAILY
potassium chloride 20 mEq Tablet Extended Release
20 meq PO DAILY
Invokamet 150-1,000 mg Tablet
1 tab PO BID
polyethylene glycol 3350 [HealthyLax] 17 gram powder in packet
17 g PO PRN PRN (Reason: constipation)
cyanocobalamin (vitamin B-12) 1,000 mcg/mL Solution
1,000 mcg IM QMONTH
Rx Instructions:
Next dose due first week of August
fluticasone propionate [Flonase Allergy Relief] 50 mcg/actuation [place],Suspension
1 spray INTRANASAL DAILY
furosemide 40 mg tablet
40 mg PO DAILY
Discharge Orders:
Discharge Patient (As Directed); Ordered 07/18/23
Ordered By: Imtiaz Mandujano
Discharge Date and Time
Print Language: FRISIAN
[2023-07-18] MEDS: LANTUS 0.119999999999999996 UNITS SC (09:11)
[2023-07-18] MEDS: AMARYL 4 MG PO (09:12)
[2023-07-18] MEDS: IMDUR (EXTENDED RELEASE) 30 MG PO (09:12)
[2023-07-18] MEDS: NOVOLOG FLEXPEN-LOW RESISTANCE 1 UNITS SC (09:12)
[2023-07-18] MEDS: VITAMIN D3 (cholecalciferol) 50 MCG PO (09:12)
[2023-07-18] MEDS: SINGULAIR 10 MG PO (09:13)
[2023-07-18] MEDS: PROTONIX 40 MG PO (09:13)
[2023-07-18] MEDS: ZETIA 10 MG PO (09:13)
[2023-07-18] MEDS: KCL 20 MEQ PO (09:13)
[2023-07-18] MEDS: LASIX 40 MG PO (09:13)
[2023-07-18] MEDS: ASPIR LOW (ENTERIC COATED) 81 MG PO (09:13)
[2023-07-18] MEDS: LOPRESSOR 12.5 MG PO (09:13)
[2023-07-18] MEDS: FEOSOL 325 MG PO (09:14)
[2023-07-18 11:40] LABS: Glucose - Point of Care 337 mg/dl (70-99)
[2023-07-18] MEDS: NOVOLOG FLEXPEN-LOW RESISTANCE 4 UNITS SC (11:40)
[2023-07-18] MEDS: MYCAMINE 105 MG IV (11:44)
--- NOTE | 2023-07-18 13:17 | W.PN.ID1 ---
Date of Service
Date of Service: July 18, 2023
Today's Communication
Continue antibiotics.
Assessment / Plan
Sternal wound
- S/p removal of hardware and bone debridement
- Bone cultures with Jyoti albicans alone.
Suspected recurrent osteomyelitis
DM
HTN
CARLOS
Asthma
CAD
Fibromyalgia
Restless leg syndrome
Recommendations:
Given recovery of Jyoti, continue micafungin. Isolate has been sent out for full susceptibilities.
Counseled patient that an additional 6-week course of antibiotics may be necessary in the treatment of this infection. Until full susceptibilities are known, would continue with micafungin.
PICC line placed. Patient for discharge on home micafungin infusion.
����������������������������������������������������������
Chief Complaint
-: Other (Sternal wound)
Subjective / Review of Systems
Review of Systems: No Fever and No Chills
Vital Signs / Physical Exam
Vital Signs
Vital Signs
Temp Pulse Resp BP Pulse Ox
98 F 72 17 145/75 98
07/18/23 07:54 07/18/23 07:54 07/18/23 07:54 07/18/23 07:54 07/18/23 07:54
Physical Exam
Constitutional: No Acute Distress, Comfortable and Non-toxic
Eyes: Sclera Anicteric
Pulmonary: Non Labored
Wound: Other (Sternal wound dressed.)
Neurological: Awake and Alert
Psychological: Calm
Objective Data
Lab Data
Lab Results
07/16/23 13:46
07/17/23 18:43
Estimated Creat Clear 51 ml/min 07/16/23 13:46
Most recent labs reviewed.
Micro Results:
07/15/23 11:04 Anaerobic Culture - Preliminary
Bone NO ANAEROBES ISOLATED
07/15/23 11:04 Anaerobic Culture - Preliminary
Chest Fluid NO ANAEROBES ISOLATED
07/15/23 11:04 Tissue Culture - Preliminary
Chest - Unspecified Jyoti albicans
Gram Stain - Final
07/15/23 11:04 Tissue Culture - Preliminary
Bone Jyoti albicans
Gram Stain - Preliminary
07/15/23 11:05 Fungus Mold Identification - Pending
Bone
07/15/23 11:04 Wound Culture - Preliminary
Chest - Unspecified No growth
Gram Stain - Preliminary
07/15/23 11:04 Anaerobic Culture - Preliminary
Chest - Unspecified Culture pending. Anaerobic cultures are examined after 3
days incubation. Additional information to follow.
Wound/abscess/other Cult Final 11/21/22 1637
Moderate Pseudomonas aeruginosa
Moderate Escherichia coli
1. Pseudomonas aeruginosa
M.I.C. RX
--------- ---
Cefepime <=2 S
Ceftazidime 4 S
Ciprofloxacin 2 R
Gentamicin <=4 S
Levofloxacin 4 R
Meropenem <=1 S
Piperacillin/Tazobactam <=16 S
Tobramycin <=4 S
2. Escherichia coli
M.I.C. RX
--------- ---
Amoxicillin/Potas. Clavulanate <=8/4 S
Ampicillin <=8 S
Ampicillin/Sulbactam <=8/4 S
Cefazolin <=2 S
Ertapenem <=0.5 S
Ciprofloxacin <=0.25 S
Gentamicin <=4 S
Levofloxacin <=0.5 S
Meropenem <=1 S
Piperacillin/Tazobactam <=16 S
Tobramycin <=4 S
Trimethoprim/Sulfamethoxazole <=2/38 S
--- NOTE | 2023-07-18 14:10 | CM ---
met with patient at bedside.referral sent to [facility] for iv infusion nurse and patient being dc home wiht a drain.called [facility] to let them patient being followed by [facility] who are able to service [place] tomorrow.faxed clinicals to
[facility].spoke with nathalia and faxe picc line measurements and chest xray results.patient signed medicare letter, to transport home.
--- NOTE | 2023-07-18 15:29 | W.PN.HOSP.TC ---
Today's Communication/Plan
-
On IV antibiotics.
Outpatient infusion set up.
No changes in cardiovascular and diabetic regimen.
Assessment / Plan
Assessment / Plan
Impression:
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
Status post debridement and hardware removal on 07/14
Conditions prior to admission:
CAD status post CABG x 4 10/27
Postoperative pericarditis
Postoperative atrial fibrillation with sinus pauses requiring pacemaker on 10/27
Chronic CHF preserved EF.
-ECHO 10/24/22: EF 55 to 60%, mild concentric LVH, mild , mild TR, no significant change compared to prior
Known IDDM.
Hypertension
Dyslipidemia
Obesity
Obstructive sleep apnea on CPAP.
Fibromyalgia
Asthma without exacerbation
Pratt esophagus
Plan:
Recurrent sternal wound infection with osteomyelitis
Status postdebridement on 07/14
Prior culture from 11/27 consistent with Pseudomonas and E. coli
Preliminary wound culture with Jyoti albicans
Initiated on cefepime with addition of micafungin pending final sensitivities.
Plan is for home infusion with appropriate arrangements as per ID.
Continue wound care.
Coronary artery disease.
Stable
Continue aspirin, atorvastatin, metoprolol, Imdur
Chronic CHF preserved EF.
Compensated volume status.
Continue furosemide and potassium supplementation.
Monitor volume status closely
Asthma without exacerbation
Continue Singulair
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
Fibromyalgia, chronic pain
Adjust analgesic regimen accordingly
Continue Tylenol, tramadol wean off IV narcotics.
Diabetes
Persistent hyperglycemia noted
Update hemoglobin A1c. 7.9
Basal bolus protocol for tight blood glucose control regimen in the settings of recurrent infection
Continue preadmission regimen including Invokana, metformin, glimepiride.
Add Lantus at bedtime and titrate dose
Anticipated Discharge: Today
Subjective/Interval History
-
Date of Service: July 18, 2023
Objective Data
-
Vital Signs:
Vital Signs
Temp Pulse Resp BP Pulse Ox
98 F 72 17 145/75 98
07/18/23 07:54 07/18/23 07:54 07/18/23 07:54 07/18/23 07:54 07/18/23 07:54
I&O
07/17/23 07/18/23 07/19/23
06:59 06:59 06:59
Intake Total 1979 960 / 960
Output Total
Balance 1958 955 / 955
Physical Exam
-
General: Well Developed and No Apparent Distress
HEENT: Normocephalic, Atraumatic and Moist Mucous Membranes
Respiratory: Clear to Auscultation
Cardiac: Regular Rhythm and S1/S2; Negative Murmur, Rub or Gallop
GI: Soft, Nontender, Nondistended and Normal Bowel Sounds; Negative Organomegaly
Rectal: Deferred by Provider
Musculoskeletal: No Clubbing, No Cyanosis and No Edema
Skin: Negative Rash
Neuro: Nonfocal/Grossly Intact
[2023-07-18 16:15] VITALS: BP 150/72
== END 2023-07-18 16:25 | disposition home or self-care (01) | DRG 857 ==
LOC: 2 SOUTH 06:26
PROVIDERS: ADMITTING PHYSICIAN Surgery Plastic and Reconstructive Surgery; CONSULT PHYSICIAN Internal Medicine; CONSULT PHYSICIAN Internal Medicine Infectious Disease
PROC: 0KXH0ZZ Transfer Right Thorax Muscle, Open Approach (ICD-10-PCS; 2023-07-15)
PROC: 0PP004Z Removal of Internal Fixation Device from Sternum, Open Approach (ICD-10-PCS; 2023-07-15)
PROC: 0JB60ZZ Excision of Chest Subcutaneous Tissue and Fascia, Open Approach (ICD-10-PCS; 2023-07-15)
PROC: 0PB10ZZ Excision of 1 to 2 Ribs, Open Approach (ICD-10-PCS; 2023-07-15)
DX: T81.42XA Infection following a procedure, deep incisional surgical site, initial encounter (principal); I50.32 Chronic diastolic (congestive) heart failure; M86.68 Other chronic osteomyelitis, other site; B96.1 Klebsiella pneumoniae [K. pneumoniae] as the cause of diseases classified elsewhere; Y83.8 Other surgical procedures as the cause of abnormal reaction of the patient, or of later complication, without mention of misadventure at the time of the procedure; I25.10 Atherosclerotic heart disease of native coronary artery without angina pectoris; I11.0 Hypertensive heart disease with heart failure; I48.91 Unspecified atrial fibrillation; E11.65 Type 2 diabetes mellitus with hyperglycemia; Z95.1 Presence of aortocoronary bypass graft; Z79.4 Long term (current) use of insulin
CPT/HCPCS: 71045; 80048; 82947; 82962; 83036; 85025; 87070; 87075; 87077; 87107; 87158; 87176; 87186; 87205; 93005; 94660; C1729

== ENCOUNTER → 2024-07-01 15:00 | Outpatient (REF) | payer MEDICARE, OTHER, SELFPAY ==
[2024-07-01 16:39] LABS: Blood Urea Nitrogen 30 mg/dl (7-17)
== END ==
LOC: REG 15:00
PROVIDERS: ATTENDING PHYSICIAN Surgery Plastic and Reconstructive Surgery; FAMILY PHYSICIAN Family Medicine
DX: Z01.818 Encounter for other preprocedural examination (principal)
CPT/HCPCS: 36415; 82565; 84520

== ENCOUNTER → 2024-07-05 14:07 | Outpatient (REF) | payer MEDICARE, OTHER, SELFPAY | LOC: RAD 14:07 | PROVIDERS: ATTENDING PHYSICIAN Surgery Plastic and Reconstructive Surgery; FAMILY PHYSICIAN Family Medicine | DX: K43.9 Ventral hernia without obstruction or gangrene (principal) | CPT/HCPCS: 71260; 74177; Q9967 ==

== ENCOUNTER 2024-07-10 03:42 | Inpatient (IN) | payer MEDICARE, OTHER, SELFPAY ==
[2024-07-09 22:43] VITALS: BP 176/90
[2024-07-09 23:00] VITALS: BMI 31.6
--- NOTE | 2024-07-09 23:12 | ED.GENMED ---
History of Present Illness
General
Chief Complaint: Abdominal Symptoms
Source: patient
Exam Limitations: none
Time Seen by Provider: 07/09/24 23:00
History of Present Illness
History of Present Illness:
See MDM
Past History
Past History
ED Past Medical History: Arrthythmia, Asthma, CAD, HTN and Other (Chest wall wound/wound VAC)
ED Past Surgical History: Cardiac and Orthopedic
Social History
Living: with family
Phy Exam
Physical Exam
Physical Exam:
See MDM
Course
Orders/Labs/Results
Orders:
Orders
07/09/24 23:11
IV Insert/Care/Rem.- Treatment PRN
Pantoprazole 80 mg/100 ml Nss [Protonix] 80 mg in 100 ml IV NOW
Pantoprazole [Protonix IV] 80 mg IV NOW STA
07/09/24 23:12
0.9% Sodium Chloride 1000 ml [Nss] 1,000 ml IV BOLUS
Lorazepam [Ativan] 0.5 mg IV NOW STA
Ondansetron Injectable [Zofran] 4 mg IV NOW STA
07/09/24 23:31
Type+Screen Urgent
Complete Blood Count/With Diff Urgent
Comprehensive Metabolic Panel Urgent
Lipase Urgent
PTT Urgent
Prothrombin Time Urgent
Abnormal Lab Results
07/09/24
23:31
WBC 11.1 H 10^3/uL
(4.8-10.8)
Absolute Neuts (auto) 8.0 H 10^3/uL
(1.4-6.5)
Absolute Monos (auto) 0.8 H 10^3/uL
(0.1-0.6)
Lymphocytes % 19.7 L %
(20.5-51.1)
BUN 27 H mg/dl
(7-17)
Glucose 184 H mg/dl
(70-99)
Calcium 11.0 H mg/dl
(8.4-10.2)
07/09/24 23:31
07/09/24 23:31
Vital Signs
Initial and Last Documented VS:
Initial Vital Signs
Temp Pulse Resp BP Pulse Ox
98.8 F 77 18 176/90 98
07/09/24 22:43 07/09/24 22:43 07/09/24 22:43 07/09/24 22:43 07/09/24 22:43
Last Documented Vital Signs
Temp Pulse Resp BP Pulse Ox
98.8 F 77 18 176/90 98
07/09/24 22:43 07/09/24 22:43 07/09/24 22:43 07/09/24 22:43 07/09/24 22:43
MDM/Problems Addressed
Differential Diagnosis Includes:
HPI and MDM Narrative:
74-year-old female presenting for evaluation of nausea and vomiting. Patient was told to come to the emergency department if her symptoms worsen. She had outpatient CT showing substernal hernia. Patient has had reconstructive surgery of her
abdomen. She had dehiscence of wound from prior sternotomy. She states the plastic surgeon had gone in and removed the infected hardware. She states that she noted a bulge that has worsened over the past few months. They did a CT showing concern
for hernia. Patient was told to go to the emergency department if any of her symptoms worsen. Patient now having trouble keeping any food or water down. She did vomit earlier today and states it looked black.
On exam, patient does have palpable hernia just below her xiphoid process. Recent CT shows that it does involve herniation of the gastric antrum. Given the black vomit, will start PPI drip. Given her inability to tolerate p.o., will start IV
fluids and admit
Physical exam
General: Well appearing and non-toxic
HEENT: protecting airway. Dry mucous membranes
Neck: appears supple
CV: No evidence of cyanosis
Resp: No accessory muscle use
Abd: Non-distended. Palpable hernia midline abdomen below the xiphoid process. No clinical signs of incarceration or strangulation
Extremities: No deformities
Neuro: alert
Psych: Normal affect
Skin: Intact
Problems Addressed including Acute and Chronic Conditions affecting care:
1. Ventral hernia
Acuity: acute
Prognosis: stable
Details: General Surgery will need to evaluate
2. Black vomit
Acuity: acute
Prognosis: unstable
Details: Potentially in setting of upper GI bleeding. Will start PPI drip
Differential Diagnosis (but not limited to): Peptic ulcer disease, ventral hernia,
Testing considered: Lactic acid
Drug therapy (if applicable): OTC meds, please see d/c instruction regarding Rx drugs
Amount and/or Complexity of Data Reviewed
Clinical info obtained from: Patient
External data reviewed: Outpatient CT shows ventral hernia which contains gastric antrum
Labs I independently reviewed (but not limited to): mild leukocytosis
Radiology: N/A
Pulse Ox: not hypoxic
EKG independently reviewed: N/A
Scuba Dive Training Instructor: N/A
Critical Care: N/A
Risk of Complication:
Social Determinants of health: Good social support
Discussed with other providers: Hospitalist
Escalation of Care includes Admit/Obs: Given the ventral hernia with trouble with p.o. intake, will admit
Occasional wrong word or 'sound a like' substitutions may have occurred due to the inherent limitations of voice recognition software. Read the chart carefully and recognize, using context, where substitutions have occurred.
*Critical Care Note
Total Time (30-74mins, 75-104mins- exclusive of procedures): Not Applicable
ED Attending Note
-
Portions of this chart may have been created with voice recognition software.� Occasional wrong word or��sound alike� substitutions may have occurred due to the inherent limitations of voice recognition software.
Discharge Plan
Departure
Patient Disposition: Admit
Date of Disposition: 07/10/24
Time of Disposition: 00:36
Admit to: Med/Surg
Presentation/result/management discussed w/ accepting MD/DO: Hospitalist
Discharge Problem:
Ventral hernia, Vomiting
Prescriptions:
No Action
cyclobenzaprine 10 mg Tablet
20 mg PO HS
latanoprost 0.005 % Drops
1 drp BOTH EYES HS
isosorbide mononitrate 30 mg Tablet Extended Release 24 Hr
30 mg PO DAILY
fexofenadine 180 mg Tablet
180 mg PO DAILY
ropinirole 0.25 mg Tablet
1.5 mg PO DAILY@1900
montelukast [Singulair] 10 mg Tablet
10 mg PO DAILY
ezetimibe 10 mg Tablet
10 mg PO DAILY
omega-3 acid ethyl esters [Lovaza] 1 gram Capsule
1 cap PO QPM
acetaminophen [Tylenol Extra Strength] 500 mg Tablet
1,000 mg PO Q6HPRN PRN (Reason: mild pain)
cholecalciferol (vitamin D3) [Vitamin D3] 50 mcg (2,000 unit) Capsule
50 mcg PO DAILY
PreserVision AREDS-2 250-90-40-1 mg Capsule
1 cap PO BID
albuterol sulfate 90 mcg/actuation Hfa Aerosol Inhaler
2 puff inhalation R QIDPRN PRN (Reason: sob/wheezing)
pantoprazole 40 mg tablet,delayed release (DR/EC)
40 mg PO DAILY
aspirin 81 mg Tablet,Delayed Release (Dr/Ec)
81 mg PO DAILY
atorvastatin 80 mg tablet
80 mg PO HS
metoprolol tartrate 25 mg tablet
12.5 mg PO BID
tramadol 50 mg Tablet
100 mg PO TID
glimepiride 2 mg Tablet
2 mg PO QPM
ferrous sulfate [FeroSul] 325 mg (65 mg iron) Tablet
325 mg PO DAILY
glimepiride 4 mg Tablet
4 mg PO DAILY
potassium chloride 20 mEq Tablet Extended Release
20 meq PO DAILY
Invokamet 150-1,000 mg Tablet
1 tab PO BID
polyethylene glycol 3350 [HealthyLax] 17 gram powder in packet
17 g PO PRN PRN (Reason: constipation)
cyanocobalamin (vitamin B-12) 1,000 mcg/mL Solution
1,000 mcg IM QMONTH
Rx Instructions:
Next dose due first week of August
fluticasone propionate [Flonase Allergy Relief] 50 mcg/actuation [place],Suspension
1 spray INTRANASAL DAILY
furosemide 40 mg tablet
40 mg PO DAILY
Referrals:
Merry Cook DO [Family Provider] -
Interventions
Interventions:
*Risk Screen - Suicide Last Done: 07/09/24 22:43
*General Assessment Last Done: 07/09/24 22:43
*Neglect/Abuse Screening Last Done: 07/09/24 22:43
*ED- Fall Risk Assessment Last Done: 07/09/24 23:11
*ED COVID-19 Vaccine History Last Done: 07/09/24 22:43
GN-Oujpfg-Fjdhcvgfen Assessment Last Done: 07/09/24 23:11
Discharge Date and Time
Print Language: MALAY
[2024-07-09] MEDS: NSS 1000 IV (23:36)
[2024-07-09] MEDS: ZOFRAN 4 MG IV (23:38)
[2024-07-09] MEDS: PROTONIX IV 80 MG IV (23:49)
[2024-07-09] MEDS: ATIVAN 0.5 MG IV (23:54)
[2024-07-09] MEDS: PROTONIX 100 IV (23:59)
[2024-07-10] VITALS (13 sets, daily range): BP systolic 121–180; BP diastolic 57–98; BMI 30.7
[2024-07-10 00:03] LABS: % Basophils 0.4 % (0-2); % Eosinophils 0.6 % (0-6); % Immature Granulocytes 0.4 % (0-0.5); % Lymphocytes 19.7 % (20.5-51.1); % Monocytes 7.5 % (1.7-9.3); % Neutrophils 71.4 % (42.2-75.2); Absolute Eosinophils 0.1 10^3/uL (0-0.7); Absolute Lymphocytes 2.2 10^3/uL (1.2-3.4); Absolute Monocytes 0.8 10^3/uL (0.1-0.6); Hematocrit 38.1 % (37.0-47.0); Hemoglobin 12.7 g/dL (12.0-16.0); Mean Corp Hgb Conc. 33.3 g/dL (33.0-37.0); Mean Corpuscular Hgb 28.1 pg (27.0-31.0); Mean Corpuscular Volume 84.3 fL (81.0-99.0); Mean Platelet Volume 10.2 fL (7.4-10.4); Nucleated Red Blood Cells % 0 %; Platelet Count 226 10^3/uL (130-400); Red Blood Cell Count 4.52 10^6/uL (4.20-5.40); Red Cell Dist. Width 14.2 % (11.5-14.5); White Blood Cell Count 11.1 10^3/uL (4.8-10.8)
[2024-07-10 00:13] LABS: INR 1.08; PT 14.3 Sec (11.4-14.6)
[2024-07-10 00:14] LABS: APTT 32.5 Sec (23.4-35.0)
[2024-07-10 00:23] LABS: ALT (SGPT) 18 U/L (0-35); AST (SGOT) 23 U/L (14-36); Albumin 4.3 g/dl (3.5-5.0); Alkaline Phosphatase 120 U/L (38-126); Blood Urea Nitrogen 27 mg/dl (7-17); Carbon Dioxide 25 mmol/L (22-30); Chloride 98 mmol/L (98-107); Estimated Creatinine Clearance 54 ml/min; Glucose 184 mg/dl (70-99); Lipase 55 U/L (23-300); Potassium 4.8 mmol/L (3.5-5.1); Sodium 136 mmol/L (135-145); Total Bilirubin 0.8 mg/dl (0.2-1.3); Total Protein 7.3 g/dl (6.3-8.2); eGFR > 60.00
--- NOTE | 2024-07-10 03:31 | HPS.HSE ---
Family Physician
-
Family Physician: Merry Cook
Chief Complaint
-
N/V, Abdominal hernia
History of Present Illness
Patient is a 74y F with PMH significant for ASCVD, hypertension and DM-II who presents to ED complaining of abdominal hernia and N/V. Patient has prior h/o CABG and sternal wound dehiscence / osteomyelitis. She underwent sternal hardware
removal and flap formation with Dr. Mandujano in 2023. She has been maintained on chronic fluconazole suppression for Jyoti osteomyelitis since that time. Patient indicates that she has had a small 'bulge' beneath the xiphoid since that surgery.
One week ago, she was leaning over the sink and when she stood up shoe noted that the bulge was much large in size. She is not certain if she bumped her chest on the counter, etc. There was no associated pain. However, she has noted increased
belching and some nausea since that time. She was seen by Dr. Mandujano last Friday and had a CT scan done 07/05. This shows a ventral hernia in the area of concern with evidence of contained gastric antrum.
Patient reports issues with loose stools in addition to belching. Prior to admission, she had a single episode of emesis at home. Patient state that the emesis contained 'black flecks'.
It is of note that patient started taking Ozempic about 3 weeks ago.
Medical History
Past Medical History
Past Medical History: Reports Other
Additional Past Medical History:
ASCVD
Hypertension
DM-II
Chronic Jyoti Osteomyelitis of the Sternum
Chronic HFpEF
CARLOS
GERD / Pratt's Esophagus
Asthma
Restless Leg Syndrome
Iron Deficiency Anemia
Obesity
Thyroglossal Duct Cyst
Past Surgical History: Reports Other
Additional Past Surgical History:
CABG x 4
PTCA with Stent
Right TSA / Revision with R humerus ORIF
Right TKA
PPM Placement
Sternal Hardware Removal / Flap Formation
Thyroglossal Duct Cyst Excision
Social History
Tobacco: Non-smoker
Alcohol: None
Drug: None
Family History
Family History: Not pertinent
Allergies / Home Medications
Allergies reflects when Allergies were last updated in [facility].
Home Medications with original date entered in [facility]
Allergy/Medication List:
Allergies
Allergy/AdvReac Type Severity Reaction Status Date / Time
peach Allergy Itching Verified 07/09/24 22:49
strawberry Allergy Itching Verified 07/09/24 22:49
Sulfa (Sulfonamide Allergy Hives Verified 07/09/24 22:49
Antibiotics)
Home Medications
cyclobenzaprine 10 mg tablet 10 mg PO HS Pain 10/02/22
ezetimibe 10 mg tablet 10 mg PO DAILY High Cholesterol 10/02/22
fexofenadine 180 mg tablet 180 mg PO DAILY Allergies 10/02/22
isosorbide mononitrate 30 mg tablet,extended release 24 hr 30 mg PO DAILY Blood Pressure 10/02/22
latanoprost 0.005 % eye drops 1 drp BOTH EYES HS Eye Condition 10/02/22
montelukast 10 mg tablet (Singulair) 10 mg PO DAILY Allergies 10/02/22
omega-3 acid ethyl esters 1 gram capsule (Lovaza) 1 cap PO QPM High Cholesterol 10/02/22
ropinirole 0.25 mg tablet 1.5 mg PO DAILY@1900 Restless Leg Syndrome 10/02/22
acetaminophen 500 mg tablet (Tylenol Extra Strength) 1,000 mg PO Q6HPRN PRN mild pain 10/16/22
cholecalciferol (vitamin D3) 50 mcg (2,000 unit) capsule (Vitamin D3) 50 mcg PO DAILY Supplement 10/16/22
vit C 250 mg-vit E 90 mg-zinc 40 mg-copper 1 [id number] capsule (PreserVision AREDS-2) 1 cap PO BID Supplement 10/16/22
albuterol sulfate 90 mcg/actuation aerosol inhaler 2 puff inhalation R QIDPRN PRN sob/wheezing 11/13/22
pantoprazole 40 mg tablet,delayed release 40 mg PO DAILY Gastrointestinal Issue 12/02/22
aspirin 81 mg tablet,delayed release 81 mg PO DAILY Blood Clot Prevention/Tx 01/07/23
atorvastatin 80 mg tablet 80 mg PO HS High Cholesterol 01/07/23
metoprolol tartrate 25 mg tablet 12.5 mg PO BID Blood Pressure 01/07/23
cyanocobalamin (vitamin B-12) 1,000 mcg/mL injection solution 1,000 mcg IM QMONTH Vitamin B-12 deficiency 07/14/23
ferrous sulfate 325 mg (65 mg iron) tablet (FeroSul) 325 mg PO DAILY Supplement 07/14/23
fluticasone propionate 50 mcg/actuation nasal spray,suspension (Flonase Allergy Relief) 1 spray intranasal DAILY Allergies 07/14/23
glimepiride 2 mg tablet 2 mg PO QPM Diabetes 07/14/23
glimepiride 4 mg tablet 4 mg PO DAILY Diabetes 07/14/23
potassium chloride 20 mEq tablet,extended release 20 meq PO DAILY 07/14/23
tramadol 50 mg tablet 100 mg PO BID 07/14/23
furosemide 40 mg tablet 40 mg PO DAILY Fluid Retention/Swelling 07/15/23
blood-glucose sensor (Patient Communicator G7 Sensor device) 07/10/24
empagliflozin 25 mg tablet (Jardiance) 25 mg PO DAILY 07/10/24
fexofenadine 180 mg tablet 180 mg PO DAILY 07/10/24
fluconazole 100 mg tablet 100 mg PO DAILY 07/10/24
insulin glargine 100 unit/mL subcutaneous cartridge 30 unit SC DAILY 07/10/24
metformin 500 mg tablet 500 mg PO TID 07/10/24
montelukast 10 mg tablet (Singulair) 10 mg PO DAILY 07/10/24
omega-3 acid ethyl esters 1 gram capsule (Lovaza) 1 cap PO DAILY 07/10/24
ondansetron 4 mg disintegrating tablet 4 mg PO Q6H PRN nausea 07/10/24
semaglutide 0.25 mg or 0.5 mg (2 mg/3 mL) subcutaneous pen injector (Ozempic) 0.25 mg SC QWEEK 07/10/24
Review of Systems
-
History Source: Patient
A 12 point ROS was completed and negative except as noted: Yes
Constitutional: Denies Fever or Chills
Respiratory: Denies Cough or Trouble Breathing
Cardiac: Denies Chest Pain or Palpitations
Abdomen/GI: Reports Nausea, Vomiting, Diarrhea and Other (hernia); Denies Abdominal Pain, Bloody Stools or Black Stools
: Denies Dysuria or Frequency
Musculoskeletal: Denies Joint Pain or Edema
Neurological: Denies Dizzy or Headache
Psych: Denies Depression or Anxiety
Physical Exam
Vital Signs
Vital Signs
Temp Pulse Resp BP Pulse Ox
98.8 F 69 21 152/94 97
07/09/24 22:43 07/10/24 03:15 07/10/24 03:15 07/10/24 03:00 07/10/24 03:15
Physical Exam
General: Other (74y F in no acute distress.)
HEENT: Moist mucous membranes and PERRLA
Respiratory: Clear; No Wheezes, Rales or Rhonchi
Cardiac: S1/S2, Regular Rhythm and Murmur (II/ POWER)
GI: Soft, Non Tender, Non Distended, Normal Bowel Sounds and Other (Ventral hernia at base of sternum. Soft, non-tender. Very easily reducible.)
Musculoskeletal: No Clubbing, No Cyanosis and No Edema
Neuro: AO x 3
Laboratory Results
-
07/09/24 23:31
07/09/24 23:31
Laboratory Results
PT 14.3 Sec (11.4-14.6) 07/09/24 23:31
INR 1.08 07/09/24 23:31
APTT 32.5 Sec (23.4-35.0) 07/09/24 23:31
Total Bilirubin 0.8 mg/dl (0.2-1.3) 07/09/24 23:31
AST 23 U/L (14-36) 07/09/24 23:31
ALT 18 U/L (0-35) 07/09/24 23:31
Alkaline Phosphatase 120 U/L (38-126) 07/09/24 23:
Lipase 55 U/L (23-300) 07/09/24 23:31
Impression/Plan
-
A/P: Patient is a 74y F with PMH significant for ASCVD, HTN and DM-II who presents to ED complaining of abdominal hernia and N/V.
N/V
- Admit for further evaluation and treatment.
- Reported 'black flecks' in emesis of uncertain significance.
- Continue IV PPI for now.
- Follow H&H for any changes. Heme test stool.
- Monitor for any new / recurrent episodes.
- Given timing, seems likely that recent GI changes / issues are due to initiation of Ozempic therapy (3 weeks ago) - hold.
Ventral Hernia
- Seems fairly benign by exam. Outpatient CT showed gastric antrum within hernia, but very easily reducible.
- Surgery / Plastics evals for additional recommendations.
- ? increase in size, belching, etc also related to recent initiation of Ozempic as noted above.
- Patient does state that hernia itself has been present for about one year - though previously much smaller.
ASCVD
Chronic HFpEF
- Stable. No chest pain, dyspnea, etc.
- Continue current CV med regimen.
- Continue current Lasix dosing and follow I/Os, daily weights, etc.
Benign Hypertension
- Stable. Continue usual meds with holding parameters.
DM-II
- Stable. Hold PO agents acutely.
- Continue basal insulin at decreased dose for now.
- SSI coverage as needed. Update A1C.
Asthma without Acute Exacerbation
- Stable. Continue current meds.
- Albuterol PRN.
DVT Prophylaxis: SCDs
Code Status: Full
[2024-07-10 06:58] LABS: Hematocrit 39.5 % (37.0-47.0); Mean Corp Hgb Conc. 32.9 g/dL (33.0-37.0); Mean Corpuscular Hgb 27.9 pg (27.0-31.0); Mean Corpuscular Volume 84.8 fL (81.0-99.0); Mean Platelet Volume 9.5 fL (7.4-10.4); Platelet Count 221 10^3/uL (130-400); Red Blood Cell Count 4.66 10^6/uL (4.20-5.40); Red Cell Dist. Width 14.2 % (11.5-14.5); White Blood Cell Count 10.8 10^3/uL (4.8-10.8)
[2024-07-10 07:45] LABS: Blood Urea Nitrogen 28 mg/dl (7-17); Calcium 10.7 mg/dl (8.4-10.2); Carbon Dioxide 24 mmol/L (22-30); Chloride 100 mmol/L (98-107); Estimated Creatinine Clearance 54 ml/min; Glucose 175 mg/dl (70-99); Sodium 140 mmol/L (135-145); eGFR > 60.00
[2024-07-10 08:02] LABS: Glucose - Point of Care 175 mg/dl (70-99)
[2024-07-10] MEDS: COMPAZINE 5 MG IV (08:02)
--- NOTE | 2024-07-10 08:27 | CON.GI ---
Consultation
-
Date/Time Consultation Requested: 07/10/24537
Date/Time Consultation Performed: 07/10/24829
Requesting Provider: Dr Vieyra
Performing Provider: Dr. Petit / Krystal Madrigal PA-C
Reason for Consultation: nausea, ventral hernia
Medical History
Chief Complaint / HPI
Chief Complaint: vomiting
History of Present Illness:
This is a 74 year old female with a past medical history of HTN, DM, CAD (s/p CABG with surgical complication of sternal wound dehiscence and osteomyelitis) and GERD. She underwent sternal hardware removal and flap formation with Dr. Mandujano in 2023
and reports has had a 'bulge' in the upper chest/xiphoid region since that time. She reportedly leaned over the sink last week and noticed the bulge appeared larger. No abdominal pain. She did see Dr. Mandujano last week and had a CT scan 07/05/24 and
this showed an upper abdominal 7.5 cm anterior midline ventral hernia inferior to the xiphoid process, with herniation of the gastric antrum, with associated very subtle soft tissue stranding of the herniated fat. No significant gastric wall
thickening. No evidence of pneumatosis. No proximal obstruction. Constipation was also noted. Patient admits that she just started on Ozempic 3 weeks ago and has not tolerated it well due to side effects of nausea, increased belching. She did vomit,
once last night which was described as 'black liquid.' She continues to deny any abdominal pain. Patient does not drink alcohol and avoids NSAIDs. ER labs stable, hemoglobin is 13.0. Patient does take Pantoprazole daily for reflux. She is uncertain
if she was ever diagnosed with Pratt's esophagus. She denies any dysphagia or odynophagia and is compliant with taking pantoprazole every day.
Past Medical History
Past Medical History: CAD, GERD, HTN and NIDDM
Past Surgical History: Other (sternal hardware removal and flap formation with Dr. Mandujano in 2023)
Social History
Tobacco: Non-Smoker
Alcohol: None
Drug: None
Family History
Family History: Other (No family history of GI malignancies)
Allergies / Home Medications
Allergy/AdvReac Type Severity Reaction Status Date / Time
peach Allergy Itching Verified 07/09/24 22:49
strawberry Allergy Itching Verified 07/09/24 22:49
Sulfa (Sulfonamide Allergy Hives Verified 07/09/24 22:49
Antibiotics)
�Medication �Instructions �Recorded
cyclobenzaprine 10 mg tablet 10 mg PO HS Pain 10/02/22
ezetimibe 10 mg tablet 10 mg PO DAILY High Cholesterol 10/02/22
fexofenadine 180 mg tablet 180 mg PO DAILY Allergies 10/02/22
isosorbide mononitrate 30 mg 30 mg PO DAILY Blood Pressure 10/02/22
tablet,extended release 24 hr
latanoprost 0.005 % eye drops 1 drp BOTH EYES HS Eye Condition 10/02/22
montelukast 10 mg tablet 10 mg PO DAILY Allergies 10/02/22
(Singulair)
omega-3 acid ethyl esters 1 gram 1 cap PO QPM High Cholesterol 10/02/22
capsule (Lovaza)
ropinirole 0.25 mg tablet 1.5 mg PO DAILY@1900 Restless Leg 10/02/22
Syndrome
acetaminophen 500 mg tablet 1,000 mg PO Q6HPRN PRN mild pain 10/16/22
(Tylenol Extra Strength)
cholecalciferol (vitamin D3) 50 50 mcg PO DAILY Supplement 10/16/22
mcg (2,000 unit) capsule (Vitamin
D3)
vit C 250 mg-vit E 90 mg-zinc 40 1 cap PO BID Supplement 10/16/22
mg-copper 1 [id number]
capsule (PreserVision AREDS-2)
albuterol sulfate 90 mcg/actuation 2 puff inhalation R QIDPRN PRN 11/13/22
aerosol inhaler sob/wheezing
pantoprazole 40 mg tablet,delayed 40 mg PO DAILY Gastrointestinal 12/02/22
release Issue
aspirin 81 mg tablet,delayed 81 mg PO DAILY Blood Clot 01/07/23
release Prevention/Tx
atorvastatin 80 mg tablet 80 mg PO HS High Cholesterol 01/07/23
metoprolol tartrate 25 mg tablet 12.5 mg PO BID Blood Pressure 01/07/23
cyanocobalamin (vitamin B-12) 1,000 mcg IM QMONTH Vitamin B-12 07/14/23
1,000 mcg/mL injection solution deficiency
ferrous sulfate 325 mg (65 mg 325 mg PO DAILY Supplement 07/14/23
iron) tablet (FeroSul)
fluticasone propionate 50 1 spray intranasal DAILY Allergies 07/14/23
mcg/actuation nasal
spray,suspension (Flonase Allergy
Relief)
glimepiride 2 mg tablet 2 mg PO QPM Diabetes 07/14/23
glimepiride 4 mg tablet 4 mg PO DAILY Diabetes 07/14/23
potassium chloride 20 mEq 20 meq PO DAILY 07/14/23
tablet,extended release
tramadol 50 mg tablet 100 mg PO BID 07/14/23
furosemide 40 mg tablet 40 mg PO DAILY Fluid 07/15/23
Retention/Swelling
blood-glucose sensor (Dexcom G7 07/10/24
Sensor device)
empagliflozin 25 mg tablet 25 mg PO DAILY 07/10/24
(Jardiance)
fexofenadine 180 mg tablet 180 mg PO DAILY 07/10/24
fluconazole 100 mg tablet 100 mg PO DAILY 07/10/24
insulin glargine 100 unit/mL 30 unit SC DAILY 07/10/24
subcutaneous cartridge
metformin 500 mg tablet 500 mg PO TID 07/10/24
montelukast 10 mg tablet 10 mg PO DAILY 07/10/24
(Singulair)
omega-3 acid ethyl esters 1 gram 1 cap PO DAILY 07/10/24
capsule (Lovaza)
ondansetron 4 mg disintegrating 4 mg PO Q6H PRN nausea 07/10/24
tablet
semaglutide 0.25 mg or 0.5 mg (2 0.25 mg SC QWEEK 07/10/24
mg/3 mL) subcutaneous pen injector
(Ozempic)
Review of Systems
-
History Source: Patient
All other systems: A 12 pt ROS was Negative except as stated above in HPI
Vital Signs
Temp Pulse Resp BP Pulse Ox
98.8 F 67 20 151/57 97
07/09/24 22:43 07/10/24 07:30 07/10/24 07:30 07/10/24 07:00 07/10/24 07:30
Physical Exam
Exam
General: Well Developed, Well Nourished and No Apparent Distress
Respiratory: Clear
Cardiac: Regular Rhythm
GI: Soft, Non Tender, Non Distended and Normal Bowel Sounds
Skin: Warm and Dry
Neuro: AO x 3
Psych: Calm
Results
WBC 10.8 10^3/uL (4.8-10.8) 07/10/24 06:42
Hgb 13.0 g/dL (12.0-16.0) 07/10/24 06:42
Hct 39.5 % (37.0-47.0) 07/10/24 06:42
MCV 84.8 fL (81.0-99.0) 07/10/24 06:42
Plt Count 221 10^3/uL (130-400) 07/10/24 06:42
Absolute Neuts (auto) 8.0 10^3/uL (1.4-6.5) H 07/09/24 23:31
PT 14.3 Sec (11.4-14.6) 07/09/24 23:31
INR 1.08 07/09/24 23:31
APTT 32.5 Sec (23.4-35.0) 07/09/24 23:31
Sodium 140 mmol/L (135-145) 07/10/24 06:42
Potassium mmol/L (3.5-5.1) 07/10/24 06:42
Chloride 100 mmol/L (98-107) 07/10/24 06:42
Carbon Dioxide 24 mmol/L (22-30) 07/10/24 06:42
BUN 28 mg/dl (7-17) H 07/10/24 06:42
Creatinine 0.9 mg/dL (0.6-1.0) 07/10/24 06:42
Calcium 10.7 mg/dl (8.4-10.2) H 07/10/24 06:42
Total Bilirubin 0.8 mg/dl (0.2-1.3) 07/09/24 23:31
AST 23 U/L (14-36) 07/09/24 23:31
ALT 18 U/L (0-35) 07/09/24 23:31
Alkaline Phosphatase 120 U/L (38-126) 07/09/24 23:31
Lipase 55 U/L (23-300) 07/09/24 23:31
Diagnostic Image Results:
07/05/2024 CT Abdomen/Pelvis:
Upper abdominal 7.5 cm anterior midline ventral hernia inferior to the xiphoid process, with herniation of the gastric antrum. This is associated with very subtle soft tissue stranding of the associated herniated fat. No significant gastric wall
thickening. No evidence of pneumatosis. No proximal obstruction.
-Incidental stable 3 mm left upper lobe pulmonary nodule.
-Mild hepatomegaly. Mild fatty infiltration suggested.
-Cholelithiasis.
-Constipation with moderate colonic fecal burden.
Prior GI Procedures:
EGD: ? yrs ago at [facility] (Dr. Acevedo)
Colonoscopy: ~2-3 years ago at [facility] (Dr. Acevedo)
Assessment / Plan
-
74 year old female with HTN, DM, CAD (s/p CABG with surgical complication of sternal wound dehiscence and osteomyelitis) and GERD. She underwent sternal hardware removal and flap formation with Dr. Mandujano in [address] scan showing a
ventral hernia inferior to the xiphoid process, with herniation of the gastric antrum, with associated very subtle soft tissue stranding of the herniated fat. No significant gastric wall thickening. No evidence of pneumatosis. No proximal
obstruction. Constipation was also noted. Patient admits that she just started on Ozempic 3 weeks ago and has not tolerated it well due to side effects of nausea, increased belching. She did vomit, once last night which was described as 'black
liquid.' Patient does not drink alcohol and avoids NSAIDs. ER labs stable, hemoglobin is 13.0. Patient does take Pantoprazole daily for reflux. She continues to deny any abdominal pain.
IMPRESSION / PLAN:
Nausea, Vomiting - in the setting of recent Ozempic and with h/o ventral hernia
- she has discontinued the Ozempic
- with reports of hematemesis/coffee grounds emesis ('black liquid') with stable Hgb and no overt signs of bleeding
- continue IV PPI
- antiemetics as needed, per hospitalist
- with stable hemoglobin and currently asymptomatic, would hold on endoscopy at this point
- await Surgery recommendations regarding the ventral hernia
-
-
Thank you for consultation and allowing me to participate in the patient's care. Please call the programmable logic controller assembler GI physician during the after hours with any questions or concerns.
[2024-07-10] MEDS: LANTUS 0.2 UNITS SC (08:58)
[2024-07-10] MEDS: LASIX 40 MG PO (08:59)
[2024-07-10] MEDS: ASPIR LOW (ENTERIC COATED) PO (08:59)
[2024-07-10] MEDS: NOVOLOG FLEXPEN-LOW RESISTANCE 1 UNITS SC ×2 (08:59→18:18)
[2024-07-10] MEDS: IMDUR (EXTENDED RELEASE) 30 MG PO (08:59)
[2024-07-10] MEDS: DIFLUCAN 100 MG PO (08:59)
[2024-07-10] MEDS: SINGULAIR 10 MG PO (08:59)
[2024-07-10] MEDS: LOPRESSOR 12.5 MG PO (08:59)
[2024-07-10 09:00] LABS: Glycohemoglobin (HgbA1c) 8.2 % (4.0-5.6)
[2024-07-10] MEDS: NOVOLOG FLEXPEN-LOW RESISTANCE SC ×2 (11:57→16:59)
[2024-07-10 11:58] LABS: Glucose - Point of Care 157 mg/dl (70-99)
--- NOTE | 2024-07-10 12:19 | W.PN.HOSP.TC ---
Today's Communication/Plan
-
Surgery consulted
Assessment / Plan
Assessment / Plan
Impression
patient is a 74y F with PMH significant for ASCVD, HTN and DM-II who presents to ED complaining of abdominal hernia and N/V.
Assessment/plan.
Nausea and vomiting
- Admit for further evaluation and treatment.
- Reported 'black flecks' in emesis of uncertain significance.
- Continue IV PPI for now.
- Follow H&H for any changes. Heme test stool.
- Monitor for any new / recurrent episodes.
- Given timing, seems likely that recent GI changes / issues are due to initiation of Ozempic therapy (3 weeks ago) - hold.
4/5
Seen by GI today.
Continue pantoprazole.
No plan for endoscopy.
GI signed off
Ventral Hernia
- Seems fairly benign by exam. Outpatient CT showed gastric antrum within hernia, but very easily reducible.
- Surgery / Plastics evals for additional recommendations.
- ? increase in size, belching, etc also related to recent initiation of Ozempic as noted above.
- Patient does state that hernia itself has been present for about one year - though previously much smaller.
4/5
Surgery consult
Chronic diastolic CHF
Patient denies shortness of
Continue home
Daily weight.
Strict I's and O's.
Consulted cardiology.
Echo from 10/24/2022
Normal left ventricular size and systolic function. Mild concentric left
ventricular hypertrophy. No regional wall motion abnormalities are seen. LV
ejection fraction is 55-60% by visual assessment.
Mild aortic stenosis
Mild tricuspid regurgitation
Benign Hypertension
- Stable. Continue usual meds with holding parameters.
Type II diabetes mellitus
Hold oral home medication
Insulin sliding scale
Diabetic diet once start p.o.
Hemoglobin A1c 8.2
Asthma without Acute Exacerbation
- Stable. Continue current meds.
- Albuterol PRN.
CODE STATUS: Full code
DVT prophylaxis: SCDs
Diet: NPO until seen by surgeon
Total time spent on today's encounter was 65 minutes which included time spent in counseling the patient/family regarding diagnosis and treatment plan as listed above, goals of care, and symptom management. Case was discussed with nursing staff,
specialists, and care coordinators/case management. All labs and imaging personally reviewed by me. Remainder the time spent in detailed review of previous records, lab data, imaging, and other medical provider documentation.
Anticipated Discharge: 24 - 48 hours
Subjective/Interval History
-
Date of Service: July 10, 2024
Patient seen and examined at bedside, was sitting in the chair, daughter at bedside.
Patient had episode of vomiting today morning.
Denied chest pain or shortness of breath, seen by GI, no plan for endoscopy.
Objective Data
-
Labs:
Laboratory Results
07/09/24 07/10/24
23:31 06:42
WBC 10.8
Hgb 13.0
Hct 39.5
Plt Count 221
PT 14.3
INR 1.08
APTT 32.5
Sodium 136 140
Potassium 4.8
Chloride 98 100
Carbon Dioxide 25 24
BUN 27 H 28 H
Creatinine 0.9 0.9
Glucose 184 H 175 H
Calcium 11.0 H 10.7 H
Total Bilirubin 0.8
AST 23
ALT 18
Alkaline Phosphatase 120
Vital Signs:
Vital Signs
Temp Pulse Resp BP Pulse Ox
98.2 F 70 16 154/75 96
07/10/24 08:00 07/10/24 09:00 07/10/24 09:00 07/10/24 09:00 07/10/24 09:00
Physical Exam
-
General: Well Developed, Well Nourished, No Apparent Distress and Comfortable
HEENT: Normocephalic, Atraumatic, Moist Mucous Membranes, No Ptosis, PERRLA and Nose Appears Normal
Respiratory: Clear to Auscultation and Non Labored Respirations
Cardiac: Regular Rhythm and S1/S2
Breast: Deferred by me
GI: Soft, Nontender, Nondistended, Normal Bowel Sounds and Other (Palpable ventral hernia-soft no sign of struggle.)
Genito-urinary: No Costovertebral Tender
Musculoskeletal: No Clubbing, No Cyanosis and No Edema
Skin: Warm
Neuro: Awake, Alert, Oriented, AO x 3 and No Motor Deficits
Psych: Calm
Data Reviewed
-
Diagnostic Radiology: Image personally visualized and interpreted and Report Reviewed by me
CT Scan: Image personally visualized and interpreted and Report Reviewed by me
Ultrasound: Image personally visualized and interpreted and Report Reviewed by me
MRI: Image personally visualized and interpreted and Report Reviewed by me
Medical Tests (Nuc Med, Echo etc): Image personally visualized and interpreted and Report Reviewed by me
Labs: Labs Reviewed by me
Old Records: Reviewed
[2024-07-10] MEDS: NSS (PRESERVATIVE FREE) 0.25 ML IV (13:04)
[2024-07-10] MEDS: ATIVAN 0.5 MG IV (13:04)
--- NOTE | 2024-07-10 15:22 | CON.GS ---
Consultation
-
Date/Time Consultation Performed: 07/10/24 1315
Medical History
-
Chief Complaint: Belching, nausea
History of Present Illness:
74 yo female with a h/o CAD and CABG in 2022 who subsequently developed a sternal wound infection and underwent debridement and omental pedicle flap with Brandy Mandujano and Nanda. She developed a recurrent infection and surgery in 2023 for sternal
wound debridement, removal of hardware, bilateral pectoralis muscle flaps, partial rib resection with Dr. Mandujano. She notes that she has had a small bulge to the upper epigastric area for some time now, but about a week ago after bending over the
sink, she notes that bulge became larger. She has been unable to get comfortable since with belching, positional discomfort and intermittent nausea and vomiting. On exam, a ventral incisional hernia is present which is soft and able to be easily
reduced but quickly recurs. She does not have pain at the site itself. Belching noted during exam after reduction of hernia.
Past Medical History
Past Medical History: Arrhythmias (sinus node dysfunction s/p PPM 2022), CAD, GERD, HTN, Hypercholesterolemia, NIDDM, [place] and Other (CARLOS)
Past Surgical History: Cardiac (CABG 2022), Orthopedic (Right humerus ORIF, Right TKA, Right shoulder replacement) and Other (2022 debridement and omental pedicle flap with Brandy Mandujano and Nanda for sternal wound infection. 2023 for sternal wound
debridement, removal of hardware, bilateral pectoralis muscle flaps, partial rib resection with Dr. Mandujano for recurrent infection)
Social History
Tobacco: Non-Smoker
Alcohol: None
Personal:
Living: With Family
Family History
Family History: Reviewed & Not Pertinent
Allergies / Home Medications
Allergy/AdvReac Type Severity Reaction Status Date / Time
peach Allergy Itching Verified 07/09/24 22:49
strawberry Allergy Itching Verified 07/09/24 22:49
Sulfa (Sulfonamide Allergy Hives Verified 07/09/24 22:49
Antibiotics)
�Medication �Instructions �Recorded �Confirmed �Type
cyclobenzaprine 10 mg tablet 10 mg PO HS Pain 10/02/22 07/10/24 History
ezetimibe 10 mg tablet 10 mg PO DAILY High Cholesterol 10/02/22 07/10/24 History
fexofenadine 180 mg tablet 180 mg PO DAILY Allergies 10/02/22 07/10/24 History
isosorbide mononitrate 30 mg 30 mg PO DAILY Blood Pressure 10/02/22 07/10/24 History
tablet,extended release 24 hr
latanoprost 0.005 % eye drops 1 drp BOTH EYES HS Eye Condition 10/02/22 07/10/24 History
montelukast 10 mg tablet 10 mg PO DAILY Allergies 10/02/22 07/10/24 History
(Singulair)
omega-3 acid ethyl esters 1 gram 1 cap PO QPM High Cholesterol 10/02/22 07/10/24 History
capsule (Lovaza)
ropinirole 0.25 mg tablet 1.5 mg PO DAILY@1900 Restless Leg 10/02/22 07/10/24 History
Syndrome
acetaminophen 500 mg tablet 1,000 mg PO Q6HPRN PRN mild pain 10/16/22 07/10/24 History
(Tylenol Extra Strength)
cholecalciferol (vitamin D3) 50 50 mcg PO DAILY Supplement 10/16/22 07/10/24 History
mcg (2,000 unit) capsule (Vitamin
D3)
vit C 250 mg-vit E 90 mg-zinc 40 1 cap PO BID Supplement 10/16/22 07/10/24 History
mg-copper 1 [id number]
capsule (PreserVision AREDS-2)
albuterol sulfate 90 mcg/actuation 2 puff inhalation R QIDPRN PRN 11/13/22 07/10/24 History
aerosol inhaler sob/wheezing
pantoprazole 40 mg tablet,delayed 40 mg PO DAILY Gastrointestinal 12/02/22 07/10/24 History
release Issue
aspirin 81 mg tablet,delayed 81 mg PO DAILY Blood Clot 01/07/23 07/10/24 History
release Prevention/Tx
atorvastatin 80 mg tablet 80 mg PO HS High Cholesterol 01/07/23 07/10/24 History
metoprolol tartrate 25 mg tablet 12.5 mg PO BID Blood Pressure 01/07/23 07/10/24 History
cyanocobalamin (vitamin B-12) 1,000 mcg IM QMONTH Vitamin B-12 07/14/23 07/10/24 History
1,000 mcg/mL injection solution deficiency
ferrous sulfate 325 mg (65 mg 325 mg PO DAILY Supplement 07/14/23 07/10/24 History
iron) tablet (FeroSul)
fluticasone propionate 50 1 spray intranasal DAILY Allergies 07/14/23 07/10/24 History
mcg/actuation nasal
spray,suspension (Flonase Allergy
Relief)
glimepiride 2 mg tablet 2 mg PO QPM Diabetes 07/14/23 07/10/24 History
glimepiride 4 mg tablet 4 mg PO DAILY Diabetes 07/14/23 07/10/24 History
potassium chloride 20 mEq 20 meq PO DAILY 07/14/23 07/10/24 History
tablet,extended release
tramadol 50 mg tablet 100 mg PO BID 07/14/23 07/10/24 History
furosemide 40 mg tablet 40 mg PO DAILY Fluid 07/15/23 07/10/24 History
Retention/Swelling
blood-glucose sensor (Dexcom G7 07/10/24 07/10/24 History
Sensor device)
empagliflozin 25 mg tablet 25 mg PO DAILY 07/10/24 07/10/24 History
(Jardiance)
fexofenadine 180 mg tablet 180 mg PO DAILY 07/10/24 07/10/24 History
fluconazole 100 mg tablet 100 mg PO DAILY 07/10/24 07/10/24 History
insulin glargine 100 unit/mL 30 unit SC DAILY 07/10/24 07/10/24 History
subcutaneous cartridge
metformin 500 mg tablet 500 mg PO TID 07/10/24 07/10/24 History
montelukast 10 mg tablet 10 mg PO DAILY 07/10/24 07/10/24 History
(Singulair)
omega-3 acid ethyl esters 1 gram 1 cap PO DAILY 07/10/24 07/10/24 History
capsule (Lovaza)
ondansetron 4 mg disintegrating 4 mg PO Q6H PRN nausea 07/10/24 07/10/24 History
tablet
semaglutide 0.25 mg or 0.5 mg (2 0.25 mg SC QWEEK 07/10/24 07/10/24 History
mg/3 mL) subcutaneous pen injector
(Ozempic)
Review of Systems
-
History Source: Patient and Family
All other systems: Negative unless noted
A 10 point review of systems was completed, and was negative except as per HPI.
Physical Exam
Vital Signs
Temp Pulse Resp BP Pulse Ox
98.2 F 70 16 154/75 96
07/10/24 08:00 07/10/24 09:00 07/10/24 09:00 07/10/24 09:00 07/10/24 09:00
07/09/24 07/10/24 07/11/24
06:59 06:59 06:59
Actual Weight 81 kg
Body Mass Index (BMI) 31.6
Lab Results
07/10/24 06:42
07/10/24 06:42
WBC 10.8 10^3/uL (4.8-10.8) 07/10/24 06:42
Hgb 13.0 g/dL (12.0-16.0) 07/10/24 06:42
Hct 39.5 % (37.0-47.0) 07/10/24 06:42
Plt Count 221 10^3/uL (130-400) 07/10/24 06:42
Abs Immat Gran (auto) 0.0 10^3/uL (0-0.05) 07/09/24 23:31
Neutrophils % 71.4 % (42.2-75.2) 07/09/24 23:31
Physical Exam
General: Well Developed and Well Nourished
HEENT: Moist Mucous Membranes
Respiratory: Non Labored Respirations
GI: Soft, Non Tender, Non Distended and Other (ventral hernia soft, reducible, quickly recurrs)
Skin: Warm and Dry
Neuro: Awake, Alert and AO x 3
Psych: Calm
Data Reviewed
-
CT Scan: Image Personally Visualized and interpreted, Report Reviewed by me, Discussed with Physician, Discussed with Nurse, Discussed with Patient and Discussed with Family
Labs: Labs Reviewed by me, Discussed with Physician, Discussed with Nurse, Discussed with Patient and Discussed with Family
Old Records: Reviewed
Assessment / Plan
-
4 yo female with a h/o CAD and CABG in 2022 who subsequently developed a sternal wound infection and underwent debridement and omental pedicle flap with Brandy Mandujano and Nanda. She developed a recurrent infection and surgery in 2023 for sternal
wound debridement, removal of hardware, bilateral pectoralis muscle flaps, partial rib resection with Dr. Mandujano. Who subsequently developed a small ventral incisional hernia which recently increased in size with new symptoms of nausea, belching and
positional discomfort. OP CT imaging reviewed from earlier this week with hernia visualized containing portion of gastric antrum with debris/fluid filled stomach present. The hernia is not incarcerated/strangulated and is able to be reduced. Suspect
it is unfortunately causing her intermittent GOO leading to her symptoms.
--Place NGT for decompression
--Analgesics/antiemetics
--No emergent surgery planned today but will follow closely as she will likely require surgical repair either this presentation or as an outpatient
[2024-07-10] MEDS: NSS 1000 IV (17:13)
[2024-07-10] MEDS: REQUIP PO (17:15)
[2024-07-10 18:06] LABS: Glucose - Point of Care 160 mg/dl (70-99)
[2024-07-10] MEDS: XALATAN OPHTHALMIC SOLUTION BOTH EYES (21:05)
[2024-07-10] MEDS: LOPRESSOR PO (21:05)
[2024-07-10] MEDS: LIPITOR PO (21:05)
[2024-07-11 00:12] LABS: Glucose - Point of Care 174 mg/dl (70-99)
[2024-07-11] MEDS: NOVOLOG FLEXPEN-LOW RESISTANCE SC ×4 (04:10→17:10)
[2024-07-11 06:00] VITALS: BMI 30.3
[2024-07-11 06:11] LABS: Glucose - Point of Care 115 mg/dl (70-99)
[2024-07-11 06:41] LABS: Hematocrit 33.4 % (37.0-47.0); Hemoglobin 11.2 g/dL (12.0-16.0); Mean Corp Hgb Conc. 33.5 g/dL (33.0-37.0); Mean Corpuscular Hgb 28.4 pg (27.0-31.0); Mean Corpuscular Volume 84.6 fL (81.0-99.0); Mean Platelet Volume 10.1 fL (7.4-10.4); Platelet Count 207 10^3/uL (130-400); Red Blood Cell Count 3.95 10^6/uL (4.20-5.40); Red Cell Dist. Width 14.3 % (11.5-14.5); White Blood Cell Count 12.8 10^3/uL (4.8-10.8)
[2024-07-11 07:08] LABS: Blood Urea Nitrogen 38 mg/dl (7-17); Calcium 10.3 mg/dl (8.4-10.2); Carbon Dioxide 26 mmol/L (22-30); Chloride 105 mmol/L (98-107); Estimated Creatinine Clearance 43 ml/min; Glucose 124 mg/dl (70-99); Potassium 4.1 mmol/L (3.5-5.1); Sodium 145 mmol/L (135-145); eGFR 52.08
[2024-07-11 07:50] VITALS: BP 120/93
[2024-07-11 07:51] LABS: Hepatitis C Antibody Negative (Negative)
[2024-07-11] MEDS: LASIX 40 MG PO (09:29)
[2024-07-11] MEDS: ASPIR LOW (ENTERIC COATED) 81 MG PO (09:29)
[2024-07-11] MEDS: IMDUR (EXTENDED RELEASE) 30 MG PO (09:30)
[2024-07-11] MEDS: LOPRESSOR 12.5 MG PO ×2 (09:30→20:31)
[2024-07-11] MEDS: SINGULAIR 10 MG PO (09:30)
[2024-07-11] MEDS: DIFLUCAN 100 MG PO (09:50)
[2024-07-11] MEDS: LANTUS 0.2 UNITS SC (09:54)
[2024-07-11] MEDS: NSS 1000 IV (09:58)
--- NOTE | 2024-07-11 11:29 | W.PN.HOSP.TC ---
Today's Communication/Plan
-
s/p NG tube
Assessment / Plan
Assessment / Plan
Impression
patient is a 74y F with PMH significant for ASCVD, HTN and DM-II who presents to ED complaining of abdominal hernia and N/V patient has epigastric ventral hernia.
Seen by GI who signed off, seen by surgery status post NG tube and consideration for hernia repair this admission.
Assessment/plan.
Nausea and vomiting
- Admit for further evaluation and treatment.
- Reported 'black flecks' in emesis of uncertain significance.
- Continue IV PPI for now.
- Follow H&H for any changes. Heme test stool.
- Monitor for any new / recurrent episodes.
- Given timing, seems likely that recent GI changes / issues are due to initiation of Ozempic therapy (3 weeks ago) - hold.
07/10
Seen by GI today.
Continue pantoprazole.
No plan for endoscopy.
GI signed off
07/11
Surgery recommending NG tube to suction.
Patient currently NPO.
Possible hernia repair this admission
Ventral Hernia
- Seems fairly benign by exam. Outpatient CT showed gastric antrum within hernia, but very easily reducible.
- Surgery / Plastics evals for additional recommendations.
- ? increase in size, belching, etc also related to recent initiation of Ozempic as noted above.
- Patient does state that hernia itself has been present for about one year - though previously much smaller.
Surgery consulted possible hernia repair this admission.
Status post NG tube
Chronic diastolic CHF
Patient denies shortness of breath
Continue home
Daily weight.
Strict I's and O's.
Consulted cardiology.
Echo from 10/24/2022
Normal left ventricular size and systolic function. Mild concentric left
ventricular hypertrophy. No regional wall motion abnormalities are seen. LV
ejection fraction is 55-60% by visual assessment.
Mild aortic stenosis
Mild tricuspid regurgitation
Benign Hypertension
- Stable. Continue usual meds with holding parameters.
Type II diabetes mellitus
Hold oral home medication
Insulin sliding scale
Diabetic diet once start p.o.
Hemoglobin A1c 8.2
Asthma without Acute Exacerbation
- Stable. Continue current meds.
- Albuterol PRN.
CODE STATUS: Full code
DVT prophylaxis: SCDs
Diet: NPO
Total time spent on today's encounter was 65 minutes which included time spent in counseling the patient/family regarding diagnosis and treatment plan as listed above, goals of care, and symptom management. Case was discussed with nursing staff,
specialists, and care coordinators/case management. All labs and imaging personally reviewed by me. Remainder the time spent in detailed review of previous records, lab data, imaging, and other medical provider documentation.
Anticipated Discharge: 24 - 48 hours
Subjective/Interval History
-
Date of Service: July 11, 2024
Patient seen and examined at bedside.
Status post NG tube or surgery.
Denies nausea or vomiting or abdominal pain.
Objective Data
-
Labs:
Laboratory Results
07/11/24
05:56
WBC 12.8 H
Hgb 11.2 L
Hct 33.4 L
Plt Count 207
Sodium 145
Potassium 4.1
Chloride 105
Carbon Dioxide 26
BUN 38 H
Creatinine 1.1 H
Glucose 124 H
Calcium 10.3 H
Vital Signs:
Vital Signs
Temp Pulse Resp BP Pulse Ox
97.5 F 82 18 120/93 98
07/11/24 07:50 07/11/24 07:50 07/11/24 07:50 07/11/24 07:50 07/11/24 07:50
I&O
07/10/24 07/11/24 07/12/24
06:59 06:59 06:59
Intake Total
Output Total 2500 / 2500
Balance -2470 / -2470
Physical Exam
-
General: Well Developed, Well Nourished, No Apparent Distress and Comfortable
HEENT: Normocephalic, Atraumatic, Moist Mucous Membranes, No Ptosis, PERRLA and Nose Appears Normal
Respiratory: Clear to Auscultation and Non Labored Respirations
Cardiac: Regular Rhythm and S1/S2
Breast: Deferred by me
GI: Soft, Nontender, Nondistended, Normal Bowel Sounds and Other (Palpable ventral hernia-soft no sign of struggle.)
Genito-urinary: No Costovertebral Tender
Musculoskeletal: No Clubbing, No Cyanosis and No Edema
Skin: Warm
Neuro: Awake, Alert, Oriented, AO x 3 and No Motor Deficits
Psych: Calm
Data Reviewed
-
Diagnostic Radiology: Image personally visualized and interpreted and Report Reviewed by me
CT Scan: Image personally visualized and interpreted and Report Reviewed by me
Ultrasound: Image personally visualized and interpreted and Report Reviewed by me
MRI: Image personally visualized and interpreted and Report Reviewed by me
Medical Tests (Nuc Med, Echo etc): Image personally visualized and interpreted and Report Reviewed by me
Labs: Labs Reviewed by me
Old Records: Reviewed
[2024-07-11 12:11] LABS: Glucose - Point of Care 120 mg/dl (70-99)
[2024-07-11 15:00] VITALS: BP 140/73
--- NOTE | 2024-07-11 15:33 | W.PN.GS2 ---
Addendum entered and electronically signed by Maximo Menezes MD 07/11/24 16:30:
I saw and examined the patient.
The BINDERY LIBRARY TECHNICAL ASSISTANT's note was reviewed and I agree with the note.
Comment:
Seen earlier with BINDERY LIBRARY TECHNICAL ASSISTANT.
No pain. NGT in place.
AFVSS. NGT with 1.6 L/24 hrs.
Abdomen with reducible nontender upper midline hernia.
Continue NGT/npo/IVFs.
Gen surg to reassess tomorrow with ?OR for hernia repair over next few days.
Original Note:
Today's Communication / Plan
-
NPO/NGT
Assessment / Plan
-
74 yo female presenting with h/o CAD and CABG in 2022 who subsequently developed a sternal wound infection and underwent debridement and omental pedicle flap with Brandy Mandujano and Nanda. She developed a recurrent infection and surgery in 2023 for
sternal wound debridement, removal of hardware, bilateral pectoralis muscle flaps, partial rib resection with Dr. Mandujano. Presenting for GOO from a ventral incisional hernia containing a portion of the stomach.
NGT placed in the ED with 900ml of volume returned. Another 750ml overnight on the floor.
Symptomatic relief with placement of NGT
AFVSS
Mild leukocytosis
--Continue NPO with NGT for decompression
--Given her obstructive symptoms, will plan hernia repair this presentation
--Tentative OR tomorrow pending schedule availability
--Medical management as per primary team
Subjective Data
-
Date of Service: July 11, 2024
Patient seen and examined at bedside with her spouse. She doesn't remember much from the ED which she attributes to the ativan she received. Denies n/v. Belching has resolved. Denies pain.
Objective Data
-
Intake and Output
07/10/24 07/11/24 07/12/24
06:59 06:59 06:59
Intake Total
Output Total 2500 / 2500
Balance -2470 / -2470
Intake:
Amount instilled into GI Tube (
Total)
Llewellyn Sump
Output:
Gastrointestinal tube output ( 1600 / 1600
Total)
Llewellyn Sump 150 / 150
Urine, Voided 900 / 900
Other:
Number of approximated MODERATE 2
amounts of urine
Vital Signs
Temp Pulse Resp BP Pulse Ox
97.5 F 82 18 120/93 98
07/11/24 07:50 07/11/24 07:50 07/11/24 07:50 07/11/24 07:50 07/11/24 07:50
Lab Results
07/11/24 05:56
07/11/24 05:56
Calcium 10.3 mg/dl (8.4-10.2) H 07/11/24 05:56
Total Bilirubin 0.8 mg/dl (0.2-1.3) 07/09/24 23:31
AST 23 U/L (14-36) 07/09/24 23:31
ALT 18 U/L (0-35) 07/09/24 23:31
Alkaline Phosphatase 120 U/L (38-126) 07/09/24 23:31
Total Protein 7.3 g/dl (6.3-8.2) 07/09/24 23:31
Albumin 4.3 g/dl (3.5-5.0) 07/09/24 23:31
Physical Exam
-
NAD
ABD soft, nt, nd
Ventral upper abdominal hernia soft, reducible
NGT with gastric contents
[2024-07-11] MEDS: TYLENOL 650 MG PO (15:37)
[2024-07-11] MEDS: CHLORASEPTIC/SORE THROAT SPRAY 1 SPRAY PO ×3 (16:05→23:35)
--- NOTE | 2024-07-11 16:20 | CM ---
Met with patient to obtain information for assessment. Patient stated that she lives with her spouse in a one story home with two steps to enter. Patient described herself as independent with all dressing, bathing, personal care and ADLs. She can
cook, clean, do laundry and residential support specialist. She has a cane and a walker but does not use them. She has no other DME. She has had VN in the past, through [facility]. She has been to [facility] in the past.
Patient has a prescription plan and uses, [facility] for all of her medications.
Her PCP is, Merry Ambrose.
Plan: Case management will continue to follow and assist with discharge planning. Patient hopes to be able to go home when medically cleared.
[2024-07-11 17:02] LABS: Glucose - Point of Care 101 mg/dl (70-99)
[2024-07-11] MEDS: REQUIP 1.5 MG PO (20:29)
[2024-07-11] MEDS: LIPITOR PO ×2 (20:30→20:43)
[2024-07-11] MEDS: MELATONIN 5 MG PO (20:48)
[2024-07-11] MEDS: XALATAN OPHTHALMIC SOLUTION 1 DROP BOTH EYES (21:58)
[2024-07-11 23:54] VITALS: BP 152/63
[2024-07-12 00:09] LABS: Glucose - Point of Care 86 mg/dl (70-99)
[2024-07-12] MEDS: ATIVAN 0.5 MG IV (00:21)
[2024-07-12] MEDS: NSS (PRESERVATIVE FREE) 0.25 ML IV (00:22)
[2024-07-12] MEDS: NOVOLOG FLEXPEN-LOW RESISTANCE SC ×4 (00:23→18:16)
[2024-07-12 01:03] LABS: Glucose - Point of Care 79 mg/dl (70-99)
[2024-07-12] MEDS: D5W 1000 IV ×2 (02:07→23:40)
[2024-07-12 02:10] LABS: Glucose - Point of Care 80 mg/dl (70-99)
[2024-07-12 06:37] LABS: Glucose - Point of Care 91 mg/dl (70-99)
[2024-07-12 07:02] VITALS: BP 103/41
[2024-07-12 08:31] LABS: Hematocrit 31.3 % (37.0-47.0); Hemoglobin 10.4 g/dL (12.0-16.0); Mean Corp Hgb Conc. 33.2 g/dL (33.0-37.0); Mean Corpuscular Hgb 28.4 pg (27.0-31.0); Mean Corpuscular Volume 85.5 fL (81.0-99.0); Mean Platelet Volume 10.6 fL (7.4-10.4); Platelet Count 174 10^3/uL (130-400); Red Blood Cell Count 3.66 10^6/uL (4.20-5.40); Red Cell Dist. Width 14.4 % (11.5-14.5); White Blood Cell Count 12.1 10^3/uL (4.8-10.8)
[2024-07-12 09:01] LABS: Blood Urea Nitrogen 23 mg/dl (7-17); Calcium 9.2 mg/dl (8.4-10.2); Carbon Dioxide 24 mmol/L (22-30); Chloride 106 mmol/L (98-107); Estimated Creatinine Clearance 59 ml/min; Glucose 85 mg/dl (70-99); Potassium 3.4 mmol/L (3.5-5.1); Sodium 141 mmol/L (135-145); eGFR > 60.00
[2024-07-12] MEDS: SINGULAIR 10 MG PO (10:17)
[2024-07-12] MEDS: IMDUR (EXTENDED RELEASE) PO (10:17)
[2024-07-12] MEDS: DIFLUCAN 100 MG PO (10:18)
[2024-07-12] MEDS: ASPIR LOW (ENTERIC COATED) 81 MG PO (10:18)
[2024-07-12] MEDS: LASIX PO (10:20)
[2024-07-12] MEDS: LOPRESSOR 12.5 MG PO ×2 (10:20→22:01)
[2024-07-12] MEDS: LANTUS SC (10:20)
[2024-07-12] MEDS: KCL 270 MEQ IV (10:21)
--- NOTE | 2024-07-12 10:35 | W.PN.GS2 ---
Addendum entered and electronically signed by Elgin Alfredo MD 07/12/24 16:48:
I saw and examined the patient independently.
The Tanning Consultant's note was reviewed and I agree with the note, assessment and plan except where noted below.
Comment: This is a 74-year-old female with a history of CAD and CABG in 2022 who developed a sternal wound infection and underwent debridement with omentum pedicled flap complicated by recurrent infection, removal of hardware, bilateral pectoral
muscle flap as well as skin graft who is now presenting with gastric outlet obstruction from of ventral incisional hernia containing a portion of the stomach. Exam reassuring now that NG tube in place.
This is a complex hernia, will plan for robotic repair with Dr. Vee tomorrow. Dr. Mandujano aware.
Continue NG tube to low intermittent wall suction, n.p.o., IV fluids.
Antibiotics on-call to OR.
Patient and family aware, All questions answered.
Original Note:
Today's Communication / Plan
-
NPO/NGT
Operative repair this presentation
Assessment / Plan
-
74 yo female presenting with h/o CAD and CABG in 2022 who subsequently developed a sternal wound infection and underwent debridement and omental pedicle flap with Brandy Mandujano and Nanda. She developed a recurrent infection and surgery in 2023 for
sternal wound debridement, removal of hardware, bilateral pectoralis muscle flaps, partial rib resection with Dr. Mandujano. Presenting for GOO from a ventral incisional hernia containing a portion of the stomach.
Symptomatic relief with placement of NGT
AFVSS
Mild leukocytosis, ?aspiration
--Continue NPO with NGT for decompression
--Given her obstructive symptoms, will plan hernia repair this presentation
--Tentative OR early tomorrow vs friday once care can be coordinated between plastics/general surgery as this will be a complex repair given her prior surgeries
--Medical management as per primary team
Subjective Data
-
Date of Service: July 12, 2024
Patient seen and examined at bedside with Dr. Alfredo. Denies n/v. Denies pain. Coughing up thick emesis tinged mucous. Questions addressed
Objective Data
-
Intake and Output
07/11/24 07/12/24 07/13/24
06:59 06:59 06:59
Intake Total 1010 / 1010
Output Total 2500 / 2500 500 / 500
Balance -2470 / -2470 510 / 510
Intake:
Oral fluids 200 / 200
IV fluids (Total) 720 / 720
Amount instilled into GI Tube (
Total)
Cantril Sump
Output:
Gastrointestinal tube output ( 1600 / 1600 500 / 500
Total)
Cantril Sump 150 / 150 500 / 500
Urine, Voided 900 / 900
Other:
Number of approximated MODERATE 2 2
amounts of urine
Vital Signs
Temp Pulse Resp BP Pulse Ox
98.4 F 80 18 103/41 98
07/12/24 07:02 07/12/24 07:02 07/12/24 07:02 07/12/24 07:02 07/12/24 07:02
Lab Results
07/12/24 06:56
07/12/24 06:56
Calcium 9.2 mg/dl (8.4-10.2) 07/12/24 06:56
Total Bilirubin 0.8 mg/dl (0.2-1.3) 07/09/24 23:31
AST 23 U/L (14-36) 07/09/24 23:31
ALT 18 U/L (0-35) 07/09/24 23:31
Alkaline Phosphatase 120 U/L (38-126) 07/09/24 23:31
Total Protein 7.3 g/dl (6.3-8.2) 07/09/24 23:31
Albumin 4.3 g/dl (3.5-5.0) 07/09/24 23:31
Physical Exam
-
NAD
ABD soft, nt, nd
Ventral upper abdominal hernia soft, reducible
NGT with gastric contents
--- NOTE | 2024-07-12 10:45 | PN.DE.MGMTRT ---
Insulin Management
- -
07/12/2024: Diabetes Management Consult
74 year old female who presented to ED c/o N/V and abdominal pain due to an epigastric ventral hernia awaiting hernia repair.
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
Pt is awake, alert, oriented, sitting up in bed, offers no complaints, able to discuss diabetes out patient regimen, Family- and Dtr at bedside
Both report pt was taking Lantus 30 units daily in AM and glimepiride 4 mg in AM and 2mg in PM, uses Dexcom G7 for glucose monitoring at home and routinely sees her PCP for diabetes care. A1C is 8.2%, pt states it was much higher than that, Cr 0.9,
eGFR >60.
Pt is currently NPO. Received Lantus 20 units yesterday in AM. Blood glucose is low normal, was 86@ [place] and 91 @ 6:36 AM.
Will HOLD AM Lantus dose today. Will use corrective insulin for blood sugar>180 if needed. HOLD Metformin and Glimepiride
Patient is 5'3', please consider 1600 [address] diet when placing order.
Will follow cont to follow
Diabetes History
- -
Type of Diabetes: 2 requiring insulin
Pre-Admission Diabetes Regimen
07/12/24
06:56
Creatinine 0.8
Lab Results
Hemoglobin A1c 8.2 % (4.0-5.6) H 07/10/24 06:42
Insulin Pump Settings
IP Diabetes Regimen
07/11/24 07/11/24 07/12/24
12:10 17:00 00:07
Glucose
POC Glucose 120 H 101 H 86
07/12/24 07/12/24 07/12/24
01:02 02:08 06:36
Glucose
POC Glucose 79 80 91
07/12/24
06:56
Glucose 85
POC Glucose
Meal type: Lunch
Amount consumed: 0
Patient Education
[2024-07-12] MEDS: PROTONIX IV 40 MG IV ×2 (11:26→22:02)
[2024-07-12] MEDS: NSS (PRESERVATIVE FREE) 10 ML IV ×2 (11:26→22:02)
[2024-07-12 12:12] LABS: Glucose - Point of Care 109 mg/dl (70-99)
--- NOTE | 2024-07-12 13:47 | W.PN.HOSP.TC ---
Today's Communication/Plan
-
Assessment / Plan
Assessment / Plan
NAD
Scleral Anicteric
MMM
No JVD
CTABL
RRR, S1/S2
Soft, NT, ND, BS+, NGT remains in place with suction with bile in canister
Warm, Dry
AAOx3
Calm
Ventral hernia with gastric outlet obstruction/incarceration
- NGT remains in place
- IV fluids
- Analgesics
- Antiemetics
- Surgery planning to take to the OR however awaiting Dr. Plasencia as this would be considered a complex surgery with known muscle flaps
Diastolic heart failure
- Compensated
- Continue Diuretic po
- Not on MRA nor SGLT2i
- Outpatient cardiology follow up
Benign Hypertension
- Stable.
- Continue usual meds with holding parameters.
Type II diabetes mellitus
- Hold oral home medication
- Insulin sliding scale
- Diabetic diet once start p.o.
- Hemoglobin A1c 8.2
Asthma without Acute Exacerbation
- Stable. Continue current meds.
- Albuterol PRN.
Anticipated Discharge: > 48 hours
Subjective/Interval History
-
Date of Service: July 12, 2024
Seen and examined. No new complaints. No acute overnight events.
States that she has some left-sided throat pain/discomfort which is likely related to the irritation from the NGT
Objective Data
-
Labs:
Laboratory Results
07/12/24
06:56
WBC 12.1 H
Hgb 10.4 L
Hct 31.3 L
Plt Count 174
Sodium 141
Potassium 3.4 L
Chloride 106
Carbon Dioxide 24
BUN 23 H
Creatinine 0.8
Glucose 85
Calcium 9.2
Vital Signs:
Vital Signs
Temp Pulse Resp BP Pulse Ox
98.4 F 80 18 103/41 98
07/12/24 07:02 07/12/24 10:20 07/12/24 07:02 07/12/24 10:20 07/12/24 07:02
I&O
07/11/24 07/12/24 07/13/24
06:59 06:59 06:59
Intake Total 30 / 30 1010 / 1010
Output Total 2500 / 2500 500 / 500
Balance -2470 / -2470 510 / 510
[2024-07-12 14:44] LABS: Glucose - Point of Care 81 mg/dl (70-99)
[2024-07-12 15:21] VITALS: BP 102/71
[2024-07-12] MEDS: ANESTHETIC LOZENGE 1 LOZENGE PO ×2 (17:17→22:02)
[2024-07-12 18:15] LABS: Glucose - Point of Care 120 mg/dl (70-99)
[2024-07-12] MEDS: REQUIP 1.5 MG PO (18:21)
[2024-07-12] MEDS: LIPITOR 80 MG PO (22:01)
[2024-07-12] MEDS: MELATONIN 5 MG PO (22:01)
[2024-07-12] MEDS: XALATAN OPHTHALMIC SOLUTION 1 DROP BOTH EYES (22:02)
[2024-07-12 23:35] VITALS: BP 148/58
[2024-07-13] VITALS (12 sets, daily range): BP systolic 128–153; BP diastolic 42–70; BMI 30.2
[2024-07-13] MEDS: NOVOLOG FLEXPEN-LOW RESISTANCE SC ×4 (00:58→17:09)
[2024-07-13 06:27] LABS: Glucose - Point of Care 99 mg/dl (70-99)
[2024-07-13 06:34] LABS: Glucose - Point of Care 102 mg/dl (70-99)
--- NOTE | 2024-07-13 07:38 | W.PN.GS2 ---
Today's Communication / Plan
-
-- Robotic possible open incisional diaphragmatic hernia repair with mesh
Assessment / Plan
-
Patient is a 74 yo F p/w GOO from a incisional diaphragmatic hernia following an omental pedicle flap for sternal wound infection
Symptomatic relief with placement of NGT
AFVSS
Mild leukocytosis, ?aspiration
Currently stable. Current clinical situation was reviewed with the patient. Anatomy was reviewed. CT scan imaging was reviewed. Options for management including watchful waiting versus surgical repair were considered and discussed. The pros and
cons of both approaches was discussed. Given her symptomatic nature recommend operative repair.
Plan for a robotic possible open incisional diaphragmatic hernia repair with mesh. The procedure itself, as well as the risks, benefits, and alternatives was discussed. Specifically, we discussed the risks of bleeding, infection, injury to
surrounding structures (bowel, liver, esophagus, sternum, PPM wires), wound complications, seroma formation, recurrence, and general anesthetic complications. Difficult postprocedure recovery including pain management, hospital stay, potential
drain care, and the need for 4 to 6 weeks no heavy lifting or strenuous activities was discussed. All questions answered. Consent signed.
-- Robotic possible open incisional diaphragmatic hernia repair with mesh
-- NPO, IVF
-- Antibiotics: Ancef
Subjective Data
-
Date of Service: July 13, 2024
No current complaints or issues. Denies any nausea or vomiting. No chest or abdominal pain. Ms. Montero states that approximately 2 weeks ago she was bending over to wash her hair when she shortly thereafter noticed an increase in size and the
bulge in her chest. She initially presented to the Dr. Mandujano where an outpatient CT scan was performed which demonstrated a incisional diaphragmatic hernia at the site of her omental pedicle abdominal flap containing a portion of the stomach. She
has had intermittent issues with mild nausea and discomfort. This past Friday she acutely developed issues with nausea and vomiting prompting presentation to the ER.
Objective Data
-
Intake and Output
07/12/24 07/13/24 07/14/24
06:59 06:59 06:59
Intake Total 1130 / 1130 810 / 810
Output Total 640 / 640 330 / 330
Balance 490 / 490 480 / 480
Intake:
Oral fluids 200 / 200 0 / 0
IV fluids (Total) 720 / 720 720 / 720
Amount instilled into GI Tube ( 210 / 210 /
Total)
[place] Sump 210 / 210 90 / 90
Output:
Gastrointestinal tube output ( 640 / 640 330 / 330
Total)
[place] Sump 640 / 640 330 / 330
Other:
Number of approximated MODERATE 2 2
amounts of urine
Number of approximated LARGE 2
amounts of urine
Vital Signs
Temp Pulse Resp BP Pulse Ox
98.4 F 70 18 148/58 99
07/12/24 23:35 07/12/24 23:35 07/12/24 23:35 07/12/24 23:35 07/12/24 23:35
Calcium 9.2 mg/dl (8.4-10.2) 07/12/24 06:56
Total Bilirubin 0.8 mg/dl (0.2-1.3) 07/09/24 23:31
AST 23 U/L (14-36) 07/09/24 23:31
ALT 18 U/L (0-35) 07/09/24 23:31
Alkaline Phosphatase 120 U/L (38-126) 07/09/24 23:31
Total Protein 7.3 g/dl (6.3-8.2) 07/09/24 23:31
Albumin 4.3 g/dl (3.5-5.0) 07/09/24 23:31
Physical Exam
-
Gen: NAD
Chest: well healed graft overlying lower aspect of chest, palpable soft bulge, reducible, non-tender
Abd: soft NT/ND, prior incision well healed
Patient has a irvin catheter: No
Patient has a central line: No
[2024-07-13 08:00] LABS: Hematocrit 31.3 % (37.0-47.0); Hemoglobin 10.2 g/dL (12.0-16.0); Mean Corp Hgb Conc. 32.6 g/dL (33.0-37.0); Mean Corpuscular Hgb 28.1 pg (27.0-31.0); Mean Corpuscular Volume 86.2 fL (81.0-99.0); Mean Platelet Volume 10.1 fL (7.4-10.4); Platelet Count 190 10^3/uL (130-400); Red Blood Cell Count 3.63 10^6/uL (4.20-5.40); Red Cell Dist. Width 14.1 % (11.5-14.5); White Blood Cell Count 10.4 10^3/uL (4.8-10.8)
[2024-07-13 08:19] LABS: Blood Urea Nitrogen 16 mg/dl (7-17); Calcium 8.8 mg/dl (8.4-10.2); Carbon Dioxide 23 mmol/L (22-30); Chloride 106 mmol/L (98-107); Estimated Creatinine Clearance 67 ml/min; Glucose 99 mg/dl (70-99); Potassium 3.3 mmol/L (3.5-5.1); Sodium 139 mmol/L (135-145); eGFR > 60.00
[2024-07-13] MEDS: ASPIR LOW (ENTERIC COATED) PO (08:59)
[2024-07-13] MEDS: LASIX PO (08:59)
[2024-07-13] MEDS: IMDUR (EXTENDED RELEASE) 30 MG PO (09:00)
[2024-07-13] MEDS: LOPRESSOR 12.5 MG PO ×2 (09:01→20:02)
[2024-07-13] MEDS: PROTONIX IV 40 MG IV ×2 (09:01→20:03)
[2024-07-13] MEDS: NSS (PRESERVATIVE FREE) 10 ML IV ×2 (09:02→20:03)
[2024-07-13] MEDS: DIFLUCAN PO (09:12)
[2024-07-13] MEDS: SINGULAIR PO (09:12)
--- NOTE | 2024-07-13 09:55 | PN.DE.MGMTRT ---
Insulin Management
- -
07/13/2024: Diabetes Management follow up
74 year old female who presented to ED c/o N/V and abdominal pain due to an epigastric ventral hernia awaiting hernia repair.
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 Family- and Dtr at bedside
Both report pt was taking Lantus 30 units daily in AM and glimepiride 4 mg in AM and 2mg in PM, uses Dexcom G7 for glucose monitoring at home and routinely sees her PCP for diabetes care. A1C is 8.2%, pt states it was much higher than that, Cr 0.9,
eGFR >60.
Pt off the floor to OR for Robotic possible open incisional diaphragmatic hernia repair with mesh today.
All standing insulin orders were placed on hold while NPO.
Glucose stable and in range 81 to 120. Will use corrective insulin for blood sugar>180 if needed.
HOLD Metformin and Glimepiride
Patient is 5'3', please consider 1600 [address] diet when placing order.
Will follow cont to follow
Diabetes History
- -
Type of Diabetes: 2 requiring insulin
Pre-Admission Diabetes Regimen
07/13/24
06:26
Creatinine 0.7
Lab Results
Hemoglobin A1c 8.2 % (4.0-5.6) H 07/10/24 06:42
Insulin Pump Settings
IP Diabetes Regimen
07/12/24 07/12/24 07/12/24
12:11 14:42 18:12
Glucose
POC Glucose 109 H 81 120 H
07/12/24 07/13/24 07/13/24
23:56 06:26 06:33
Glucose 99
POC Glucose 99 102 H
Meal type: Lunch
Meal type: Breakfast
Patient Education
[2024-07-13 12:08] LABS: Glucose - Point of Care 96 mg/dl (70-99)
--- NOTE | 2024-07-13 12:52 | W.PN.HOSP.TC ---
Today's Communication/Plan
-
For OR with general surgery later today
Assessment / Plan
Assessment / Plan
NAD
Scleral Anicteric
MMM
No JVD
CTABL
RRR, S1/S2
Soft, NT, ND, BS+, NGT remains in place with suction with bile in canister
Warm, Dry
AAOx3
Calm
Ventral hernia with gastric outlet obstruction/incarceration
- NGT remains in place
- IV fluids
- Analgesics
- Antiemetics
-Maintain n.p.o.
- Plan for OR later
Diastolic heart failure
- Compensated
- Continue Diuretic po
- Not on MRA nor SGLT2i
- Outpatient cardiology follow up
Benign Hypertension
- Stable.
- Continue usual meds with holding parameters.
Type II diabetes mellitus
- Hold oral home medication
- Insulin sliding scale
- Diabetic diet once start p.o.
- Hemoglobin A1c 8.2
Hypokalemia
- Replete
Asthma without Acute Exacerbation
- Stable. Continue current meds.
- Albuterol PRN.
Anticipated Discharge: 24 - 48 hours
Subjective/Interval History
-
Date of Service: July 13, 2024
Seen and examined. No new complaints. No acute overnight events.
Daughter is a x-ray tech at the orthopedic office in [facility]
Objective Data
-
Labs:
Laboratory Results
07/13/24
06:26
WBC 10.4
Hgb 10.2 L
Hct 31.3 L
Plt Count 190
Sodium 139
Potassium 3.3 L
Chloride 106
Carbon Dioxide 23
BUN 16
Creatinine 0.7
Glucose 99
Calcium 8.8
Vital Signs:
Vital Signs
Temp Pulse Resp BP Pulse Ox
98.6 F 65 18 147/64 96
07/13/24 07:30 07/13/24 09:01 07/13/24 07:30 07/13/24 09:01 07/13/24 07:30
I&O
07/12/24 07/13/24 07/14/24
06:59 06:59 06:59
Intake Total 1130 / 1130 810 / 810
Output Total 640 / 640 330 / 330
Balance 490 / 490 480 / 480
--- NOTE | 2024-07-13 15:09 | W.IMMPOSTOP ---
Surgical Immed Post Op Note
-
Primary Surgeon: Nanda
Assisting Surgeon: JOBY Ventura
Pre-op Diagnosis: Incisional diaphragmatic hernia
Post-op Diagnosis: Incisional diaphragmatic hernia
Procedure Performed: Robotic incisional diaphragmatic hernia repair with mesh
Anesthesia Type: General
Specimen / Cultures: None
Estimated Blood Loss: 23 cc
Complications: None
Operative Findings:
1. 4 x 6 cm diaphragmatic defect containing stomach and omentum, reduced with 80% of hernia sac removed
2. Primary closure of fascia with #1 Stratafix symmetric (mild pull through)
3. Ventralight ST 10 x 15 cm mesh underlay repair up to and under sternum; 50% of mesh covered by pre-peritoneal pocket at cranial aspect
4. 19 Fr JURGEN into hernia space tunneled subcutaneous from abdomen
[2024-07-13 15:40] LABS: Glucose - Point of Care 147 mg/dl (70-99)
--- NOTE | 2024-07-13 16:07 | CM ---
CM reviewed chart, for OR with general surgery today. CM will continue to follow for all discharge planning needs.
Plan; home no needs, watch for VN needs
[2024-07-13] MEDS: NORMOSOL-R/PLASMALYTE-A 1000 IV (16:41)
--- NOTE | 2024-07-13 16:44 | PTCARENOTE ---
pt received from PACU aox3, LCTA on RA abd soft round and tender to palp. +BS x4 incisions with glue approximated. JURGEN RLQ with scant bloody output in tubing only. no edema, +pp b/l. CB in reach, instructed to use. IVF continues, accucheck and VS
[2024-07-13 17:08] LABS: Glucose - Point of Care 145 mg/dl (70-99)
[2024-07-13] MEDS: DILAUDID 0.5 MG IV ×2 (17:51→22:11)
[2024-07-13] MEDS: LIPITOR 80 MG PO (20:04)
[2024-07-13] MEDS: REQUIP 1.5 MG PO (20:06)
[2024-07-13 21:24] LABS: Glucose - Point of Care 141 mg/dl (70-99)
[2024-07-13] MEDS: MELATONIN 5 MG PO (22:09)
[2024-07-13] MEDS: XALATAN OPHTHALMIC SOLUTION 1 DROP BOTH EYES (22:10)
[2024-07-14 00:30] LABS: Glucose - Point of Care 131 mg/dl (70-99)
[2024-07-14] MEDS: NOVOLOG FLEXPEN-LOW RESISTANCE SC ×3 (00:30→11:40)
[2024-07-14 03:06] VITALS: BP 131/62
[2024-07-14 05:43] VITALS: BMI 31.0
[2024-07-14 06:09] LABS: Glucose - Point of Care 102 mg/dl (70-99)
[2024-07-14 07:13] VITALS: BP 138/59
[2024-07-14 08:00] LABS: Hematocrit 28.7 % (37.0-47.0); Hemoglobin 9.4 g/dL (12.0-16.0); Mean Corp Hgb Conc. 32.8 g/dL (33.0-37.0); Mean Corpuscular Volume 85.4 fL (81.0-99.0); Mean Platelet Volume 9.9 fL (7.4-10.4); Platelet Count 212 10^3/uL (130-400); Red Blood Cell Count 3.36 10^6/uL (4.20-5.40); Red Cell Dist. Width 14.3 % (11.5-14.5)
[2024-07-14] MEDS: IMDUR (EXTENDED RELEASE) 30 MG PO (08:26)
[2024-07-14] MEDS: LASIX 40 MG PO (08:26)
[2024-07-14] MEDS: ASPIR LOW (ENTERIC COATED) 81 MG PO (08:26)
[2024-07-14] MEDS: LOPRESSOR 12.5 MG PO ×2 (08:26→22:03)
[2024-07-14] MEDS: DIFLUCAN 100 MG PO (08:27)
[2024-07-14] MEDS: PROTONIX IV 40 MG IV ×2 (08:27→22:05)
[2024-07-14] MEDS: SINGULAIR 10 MG PO (08:27)
[2024-07-14] MEDS: NSS (PRESERVATIVE FREE) 10 ML IV ×2 (08:28→22:04)
[2024-07-14] MEDS: ULTRAM 50 MG PO ×2 (08:36→22:04)
[2024-07-14 08:40] LABS: Blood Urea Nitrogen 19 mg/dl (7-17); Calcium 8.5 mg/dl (8.4-10.2); Carbon Dioxide 20 mmol/L (22-30); Chloride 107 mmol/L (98-107); Estimated Creatinine Clearance 53 ml/min; Glucose 102 mg/dl (70-99); Potassium 3.8 mmol/L (3.5-5.1); Sodium 139 mmol/L (135-145); eGFR > 60.00
--- NOTE | 2024-07-14 08:40 | W.PN.GS2 ---
Today's Communication / Plan
-
-- Clears ADAT to regular diet
-- Pain control: Tylenol, Tramadol
Assessment / Plan
-
Patient is a 74 yo F p/w GOO from a incisional diaphragmatic hernia following an omental pedicle flap for sternal wound infection
POD#1 s/p robotic incisional diaphragmatic hernia repair with mesh
AFVSS
Reactive leukocytosis, mild drift in Hb (HD stable with good UOP) trend, BMP pending
Recovering well. No postoperative concerns. Plan for monitoring of dietary and pain tolerance over the next 24 to 48 hours. Ultimately discharged with JURGEN drain in place. Tentative plan for 1 to 2 weeks as an outpatient.
-- Clears ADAT to regular diet
-- Pain control: Tylenol, Tramadol
-- DC IVF when tolerating diet
-- Home meds
-- DVT: Lovenox
-- GI: PPI
-- Trend labs
-- JURGEN drain to remain in place for the next 1-2 weeks
Subjective Data
-
Date of Service: July 14, 2024
Reports some chest soreness, overall well-controlled. Tolerated slips of water, no nausea or vomiting. Ambulating to the bathroom, no dizziness or lightheadedness. Afebrile.
Objective Data
-
Intake and Output
07/13/24 07/14/24 07/15/24
06:59 06:59 06:59
Intake Total 900 / 900 1420 / 1420
Output Total 510 / 510 220 / 220
Balance 390 / 390 1200 / 1200
Intake:
Oral fluids 0 / 0 720 / 720
IV fluids (Total) 720 / 720 700 / 700
Amount instilled into GI Tube ( 180 / 180
Total)
[place] Sump 180 / 180
Output:
Drain Output (Total) 20
Right Richardson-Reilly
Gastrointestinal tube output ( 510 / 510 150 / 150
Total)
[place] Sump 510 / 510 150 / 150
Urine, Irvin 50 / 50
Other:
Number of approximated MODERATE 2
amounts of urine
Number of approximated LARGE 2 1
amounts of urine
How many times incontinent 1
SATURATED amount urine
Vital Signs
Temp Pulse Resp BP Pulse Ox
98.0 F 71 15 138/59 98
07/14/24 07:13 07/14/24 07:13 07/14/24 07:13 07/14/24 07:13 07/14/24 07:13
Lab Results
07/14/24 07:43
07/14/24 07:43
Calcium 8.5 mg/dl (8.4-10.2) 07/14/24 07:43
Total Bilirubin 0.8 mg/dl (0.2-1.3) 07/09/24 23:31
AST 23 U/L (14-36) 07/09/24 23:31
ALT 18 U/L (0-35) 07/09/24 23:31
Alkaline Phosphatase 120 U/L (38-126) 07/09/24 23:31
Total Protein 7.3 g/dl (6.3-8.2) 07/09/24 23:31
Albumin 4.3 g/dl (3.5-5.0) 07/09/24 23:31
Physical Exam
-
Gen: NAD
Abd: soft, NT/ND, non-peritoneal, incisions c/d/i - no erythema, ecchymosis or drainage, JURGEN minimal serosang
Patient has a irvin catheter: No
Patient has a central line: No
--- NOTE | 2024-07-14 10:17 | PN.DE.MGMTRT ---
Insulin Management
- -
07/14/2024: Diabetes Management follow up
74 year old female who presented to ED c/o N/V and abdominal pain due to an epigastric ventral hernia awaiting hernia repair.
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 Family- and Dtr at bedside
Both report pt was taking Lantus 30 units daily in AM and glimepiride 4 mg in AM and 2mg in PM, uses Dexcom G7 for glucose monitoring at home and routinely sees her PCP for diabetes care. A1C is 8.2%, pt states it was much higher than that, Cr 0.9,
eGFR >60.
Pt awake, alert, oriented, sitting up in bed, c/o sore throat, able to discuss diabetes out patient regimen, at bedside
POD#1 s/p robotic incisional diaphragmatic hernia repair with mesh
Insulin orders were placed on hold for last 2 days while NPO. Pt has been started on clear liquid diet, and advanced to full liquid for lunch.
Glucose stable and in range 96 to 147. Will resume Lantus at low dose, 12 units (was taking 30 units at home), 1st dose now.
Will cont to HOLD Metformin and Glimepiride until diet has been advanced.
Patient is 5'3', please consider 1600 [address] diet when advancing diet .
Will follow cont to follow
Diabetes History
- -
Type of Diabetes: 2 requiring insulin
Pre-Admission Diabetes Regimen
07/14/24
07:43
Creatinine 0.9
Lab Results
Hemoglobin A1c 8.2 % (4.0-5.6) H 07/10/24 06:42
Insulin Pump Settings
IP Diabetes Regimen
07/13/24 07/13/24 07/13/24
12:05 15:39 17:06
Glucose
POC Glucose 96 147 H 145 H
07/13/24 07/14/24 07/14/24
21:22 00:28 06:05
Glucose
POC Glucose 141 H 131 H 102 H
07/14/24
07:43
Glucose 102 H
POC Glucose
Meal type: Lunch
Patient Education
[2024-07-14 11:10] VITALS: BP 130/53
[2024-07-14] MEDS: DILAUDID 0.5 MG IV (11:22)
[2024-07-14 11:29] LABS: Glucose - Point of Care 145 mg/dl (70-99)
--- NOTE | 2024-07-14 11:32 | W.PN.HOSP.TC ---
Addendum entered and electronically signed by Dayton Cabrera MD 07/14/24 15:30:
Baseline hgb around the 10's
Today 9.4 will montior.
Likely dilutional, low clincial suspicion that htis is related to acute b lood loss as she has remained hgb stable, granted she is post op
Original Note:
Today's Communication/Plan
-
Assessment / Plan
Assessment / Plan
NAD
Scleral Anicteric
MMM
No JVD
CTABL
RRR, S1/S2
Soft, NT, ND, BS+, JURGEN drain with serosangious fluid
Warm, Dry
AAOx3
Calm
Ventral hernia with gastric outlet obstruction/incarceration
- S/p robotic incisional diaphragmatic hernia repair with mesh
- IV fluids
- Analgesics
- Antiemetics
-CLD ADAT to Regular
-Monitor for BM, If evelops abd pain and no bm concern for ileus,at that time obtain obstruction series
Diastolic heart failure
- Compensated
- Continue Diuretic po
- Not on MRA nor SGLT2i
- Outpatient cardiology follow up
Benign Hypertension
- Stable.
- Continue usual meds with holding parameters.
Type II diabetes mellitus
- Hold oral home medication
- Insulin sliding scale
- Diabetic diet once start p.o.
- Hemoglobin A1c 8.2
Hypokalemia
- Replete
Asthma without Acute Exacerbation
- Stable. Continue current meds.
- Albuterol PRN.
Anticipated Discharge: Within 24 hours
Subjective/Interval History
-
Date of Service: July 14, 2024
Seen and examined. No new complaints. No acute overnight events.
Not really passing gas
Has not had a bowel movement
Urinating well
States abdominal pain ramping up
Objective Data
-
Labs:
Laboratory Results
07/14/24
07:43
WBC 11.0 H
Hgb 9.4 L
Hct 28.7 L
Plt Count 212
Sodium 139
Potassium 3.8
Chloride 107
Carbon Dioxide 20 L
BUN 19 H
Creatinine 0.9
Glucose 102 H
Calcium 8.5
Vital Signs:
Vital Signs
Temp Pulse Resp BP Pulse Ox
98.0 F 71 15 138/59 98
07/14/24 07:13 07/14/24 07:13 07/14/24 07:13 07/14/24 07:13 07/14/24 07:13
I&O
07/13/24 07/14/24 07/15/24
06:59 06:59 06:59
Intake Total 900 / 900 1420 / 1420
Output Total 510 / 510 220 / 220
Balance 390 / 390 1200 / 1200
[2024-07-14] MEDS: LANTUS 0.12 UNITS SC (12:50)
--- NOTE | 2024-07-14 13:53 | PN.CDI ---
CDI
- -
CDI:
Physician Documentation Request
Admit Date: 07/10/24 03:42
Dear Doctor Rick,
Patient admitted with ventral hernia with gastric outlet obstruction/incarceration s/p robotic incisional diaphragmatic hernia repair with mesh.
Hgb levels documented below:
Laboratory Tests
07/09/24 07/10/24 07/11/24
23:31 06:42 05:56
Hgb 12.7 13.0 11.2 L
07/12/24 07/13/24 07/14/24
06:56 06:26 07:43
Hgb 10.4 L 10.2 L 9.4 L
Based on the above, please clarify in your progress note, which of the following is the most likely diagnosis you are evaluating, monitoring and/or treating?
Acute blood loss anemia
Insignificant abnormal lab findings
Other
Use of terms such as suspected, likely, concern for, or probable (associated with a specific diagnosis that is being evaluated, monitored, or treated as if it exists) are acceptable and can be coded in the inpatient setting, when documented at the
time of discharge.
Thank you,
Tish LENNON,RN,CCDS
CDI Specialist
Available via tiger text
Please use your independent medical judgment in providing your response.
[2024-07-14 15:20] VITALS: BP 126/51
[2024-07-14 16:45] LABS: Glucose - Point of Care 184 mg/dl (70-99)
[2024-07-14] MEDS: NOVOLOG FLEXPEN-LOW RESISTANCE 1 UNITS SC (17:40)
[2024-07-14] MEDS: LOVENOX 40 MG SC (17:41)
[2024-07-14] MEDS: REQUIP 1.5 MG PO (18:14)
[2024-07-14 19:05] VITALS: BP 123/60
[2024-07-14] MEDS: MELATONIN 5 MG PO (22:04)
[2024-07-14] MEDS: LIPITOR 80 MG PO (22:04)
[2024-07-14] MEDS: XALATAN OPHTHALMIC SOLUTION 1 DROP BOTH EYES (22:05)
[2024-07-14 22:17] LABS: Glucose - Point of Care 178 mg/dl (70-99)
[2024-07-14 23:09] VITALS: BP 146/66
[2024-07-14] MEDS: ANESTHETIC LOZENGE 1 LOZENGE PO (23:16)
[2024-07-15 03:17] VITALS: BP 128/86
[2024-07-15 06:00] VITALS: BMI 31.2
[2024-07-15 07:08] VITALS: BP 115/45
[2024-07-15 07:21] LABS: Hematocrit 26.2 % (37.0-47.0); Hemoglobin 8.7 g/dL (12.0-16.0); Mean Corp Hgb Conc. 33.2 g/dL (33.0-37.0); Mean Corpuscular Hgb 28.2 pg (27.0-31.0); Mean Corpuscular Volume 85.1 fL (81.0-99.0); Mean Platelet Volume 9.9 fL (7.4-10.4); Platelet Count 204 10^3/uL (130-400); Red Blood Cell Count 3.08 10^6/uL (4.20-5.40); Red Cell Dist. Width 14.4 % (11.5-14.5); White Blood Cell Count 6.6 10^3/uL (4.8-10.8)
[2024-07-15 07:26] LABS: Glucose - Point of Care 112 mg/dl (70-99)
[2024-07-15 07:52] LABS: Blood Urea Nitrogen 23 mg/dl (7-17); Calcium 8.7 mg/dl (8.4-10.2); Carbon Dioxide 24 mmol/L (22-30); Chloride 104 mmol/L (98-107); Estimated Creatinine Clearance 53 ml/min; Glucose 119 mg/dl (70-99); Potassium 3.8 mmol/L (3.5-5.1); Sodium 137 mmol/L (135-145); eGFR > 60.00
[2024-07-15] MEDS: NOVOLOG FLEXPEN-LOW RESISTANCE SC (09:04)
[2024-07-15] MEDS: DIFLUCAN 100 MG PO (09:05)
[2024-07-15] MEDS: IMDUR (EXTENDED RELEASE) 30 MG PO (09:05)
[2024-07-15] MEDS: LOPRESSOR 12.5 MG PO ×2 (09:05→19:46)
[2024-07-15] MEDS: ASPIR LOW (ENTERIC COATED) 81 MG PO (09:05)
--- NOTE | 2024-07-15 09:05 | PN.DE.MGMTRT ---
Insulin Management
- -
07/15/2024: Diabetes Management follow up
74 year old female who presented to ED c/o N/V and abdominal pain due to an epigastric ventral hernia awaiting hernia repair.
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 Family- and Dtr at bedside
Both report pt was taking Lantus 30 units daily in AM and glimepiride 4 mg in AM and 2mg in PM, uses Dexcom G7 for glucose monitoring at home and routinely sees her PCP for diabetes care. A1C is 8.2%, pt states it was much higher than that, Cr 0.9,
eGFR >60.
Pt awake, alert, oriented, sitting up in chair, still c/o sore throat, able to discuss diabetes out patient regimen, at bedside
POD #2 s/p robotic incisional diaphragmatic hernia repair with mesh
Insulin orders were placed on hold for last 2 days while NPO.
Diet has been advanced to regular diet this morning, will adjust order to [address]
Glucose remains stable and in range, FBG 119 V, 112 POC. Will cont same dose of Lantus 12 units (was taking 30 units at home).
Will start Metformin and Glimepiride, 1st dose at dinner time, now that diet has been advanced.
Patient is 5'3', please consider [address] diet when advancing diet .
Will follow cont to follow
Diabetes History
- -
Type of Diabetes: 2 requiring insulin
Pre-Admission Diabetes Regimen
07/15/24
05:49
Creatinine 0.9
Lab Results
Hemoglobin A1c 8.2 % (4.0-5.6) H 07/10/24 06:42
Insulin Pump Settings
IP Diabetes Regimen
07/14/24 07/14/24 07/14/24
11:28 16:44 22:15
Glucose
POC Glucose 145 H 184 H 178 H
07/15/24 07/15/24
05:49 07:25
Glucose 119 H
POC Glucose 112 H
Meal type: Lunch
Meal type: Breakfast
Amount consumed: 100%
Amount consumed: 100%
Patient Education
[2024-07-15] MEDS: PROTONIX IV 40 MG IV ×2 (09:06→19:45)
[2024-07-15] MEDS: NSS (PRESERVATIVE FREE) 10 ML IV ×2 (09:06→19:45)
[2024-07-15] MEDS: SINGULAIR 10 MG PO (09:06)
[2024-07-15] MEDS: LASIX 40 MG PO (09:06)
[2024-07-15] MEDS: TYLENOL 650 MG PO (09:09)
[2024-07-15] MEDS: LANTUS 0.12 UNITS SC (09:52)
--- NOTE | 2024-07-15 10:40 | W.PN.GS2 ---
Today's Communication / Plan
-
`
Assessment / Plan
-
Patient is a 74 yo F p/w GOO from a incisional diaphragmatic hernia following an omental pedicle flap for sternal wound infection
POD#2 s/p robotic incisional diaphragmatic hernia repair with mesh
AFVSS
Recovering well.
JURGEN with light serosanguineous fluid
-- Regular diet
-- Pain control: Tylenol, Tramadol
-- Home meds
-- DVT: Lovenox
-- GI: PPI
-- JURGEN drain to remain in place for the next 1-2 weeks
-- MiraLAX to avoid postop constipation
Stable for discharge home from surgical standpoint. DC with JURGEN. Follow-up with Dr. Vee in 7 to 10 days for JURGEN removal
Subjective Data
-
Date of Service: July 15, 2024
Patient seen and examined
Postoperative pain predominantly in the substernal region/area of herniorrhaphy.
Robotic surgical sites with minimal discomfort
Tolerated breakfast
Passing flatus, no nausea, no BM yet
Objective Data
-
Intake and Output
07/14/24 07/15/24 07/16/24
06:59 06:59 06:59
Intake Total 1420 / 1420 897 / 897 480 / 480
Output Total 220 / 220
Balance 1200 / 1200 887 / 887 480 / 480
Intake:
Oral fluids 720 / 720 897 / 897 480 / 480
IV fluids (Total) 700 / 700
Output:
Drain Output (Total)
Right Richardson-Reilly
Gastrointestinal tube output ( 150 / 150
Total)
[place] Sump 150 / 150
Urine, [place] 50 / 50
Other:
Number of approximated MODERATE 1 1
amounts of urine
Number of approximated LARGE 1
amounts of urine
How many times incontinent 1
SATURATED amount urine
Vital Signs
Temp Pulse Resp BP Pulse Ox
98.2 F 73 17 115/45 97
07/15/24 07:08 07/15/24 07:08 07/15/24 07:08 07/15/24 07:08 07/15/24 07:08
Lab Results
07/15/24 05:49
07/15/24 05:49
Calcium 8.7 mg/dl (8.4-10.2) 07/15/24 05:49
Total Bilirubin 0.8 mg/dl (0.2-1.3) 07/09/24 23:31
AST 23 U/L (14-36) 07/09/24 23:31
ALT 18 U/L (0-35) 07/09/24 23:31
Alkaline Phosphatase 120 U/L (38-126) 07/09/24 23:31
Total Protein 7.3 g/dl (6.3-8.2) 07/09/24 23:31
Albumin 4.3 g/dl (3.5-5.0) 07/09/24 23:31
Physical Exam
-
NAD AAO x 3
ABD: Soft, nondistended, minimal tenderness on palpation
Skin graft overlying sternal area viable; tenderness on palpation of the area
JURGEN with light serosanguineous fluid
--- NOTE | 2024-07-15 11:34 | W.PN.HOSP.TC ---
Today's Communication/Plan
-
Await bowel movement
Assessment / Plan
Assessment / Plan
NAD
Scleral Anicteric
MMM
No JVD
CTABL
RRR, S1/S2
Soft, NT, ND, BS+, JURGEN drain with serosangious fluid
Warm, Dry
AAOx3
Calm
Ventral hernia with gastric outlet obstruction/incarceration
- S/p robotic incisional diaphragmatic hernia repair with mesh
- Discontinue IVF
- Analgesics
- Antiemetics
- Regular diet
-Monitor for BM, If evelops abd pain and no bm concern for ileus,at that time obtain obstruction series
- Start bowel regimen
Diastolic heart failure
- Compensated
- Continue Diuretic po
- Not on MRA nor SGLT2i
- Outpatient cardiology follow up
Benign Hypertension
- Stable.
- Continue usual meds with holding parameters.
Type II diabetes mellitus
- Hold oral home medication
- Insulin sliding scale
- Diabetic diet once start p.o.
- Hemoglobin A1c 8.2
Hypokalemia
- Replete
Asthma without Acute Exacerbation
- Stable. Continue current meds.
- Albuterol PRN
PT/OT
Dispo planning
Needs BM prior to DC
Anticipated Discharge: Within 24 hours
Subjective/Interval History
-
Date of Service: July 15, 2024
Seen and examined. No new complaints. No acute overnight event.
Tolerating diet well was just advanced to a regular diet today.
Staff not had a bowel movement
Passing more gas than she did yesterday
Urinating well
Objective Data
-
Labs:
Laboratory Results
07/15/24
05:49
WBC 6.6
Hgb 8.7 L
Hct 26.2 L
Plt Count 204
Sodium 137
Potassium 3.8
Chloride 104
Carbon Dioxide 24
BUN 23 H
Creatinine 0.9
Glucose 119 H
Calcium 8.7
Vital Signs:
Vital Signs
Temp Pulse Resp BP Pulse Ox
98.2 F 73 17 115/45 97
07/15/24 07:08 07/15/24 07:08 07/15/24 07:08 07/15/24 07:08 07/15/24 07:08
I&O
07/14/24 07/15/24 07/16/24
06:59 06:59 06:59
Intake Total 1420 / 1420 897 / 897 900 / 900
Output Total 220 / 220 10 10
Balance 1200 / 1200 887 / 887 900 / 900
--- NOTE | 2024-07-15 11:49 | CM ---
Addendum entered by Vinita López RN 07/15/24 12:39:
[facility] Fax: .
Original Note:
Reviewed the chart and spoke with the patient and spouse at the bedside. IMM reviewed. Patient requesting [facility] services. Referral sent in [facility]. CM continues to be available to patient/family and is monitoring medical plan for needs at
discharge.
Plan: Discharge to home with [facility] services.
[2024-07-15 12:29] LABS: Glucose - Point of Care 169 mg/dl (70-99)
[2024-07-15] MEDS: NOVOLOG FLEXPEN-LOW RESISTANCE 1 UNITS SC (14:42)
[2024-07-15] MEDS: MIRALAX 17 GRAMS PO (14:43)
[2024-07-15] MEDS: ULTRAM 50 MG PO (14:57)
[2024-07-15] MEDS: CHLORASEPTIC/SORE THROAT SPRAY 1 SPRAY PO (15:00)
[2024-07-15 15:03] VITALS: BP 125/52
[2024-07-15 16:11] VITALS: BP 127/50; PULSE 67
[2024-07-15 16:19] VITALS: BP 127/50; PULSE 67
[2024-07-15 17:33] LABS: Glucose - Point of Care 275 mg/dl (70-99)
[2024-07-15] MEDS: NOVOLOG FLEXPEN-LOW RESISTANCE 3 UNITS SC (17:34)
[2024-07-15] MEDS: AMARYL 2 MG PO (17:36)
[2024-07-15] MEDS: GLUCOPHAGE XR EXTENDED RELEASE 1000 MG PO (17:37)
[2024-07-15] MEDS: LOVENOX 40 MG SC (17:39)
[2024-07-15] MEDS: DILAUDID 0.5 MG IV (17:43)
[2024-07-15] MEDS: REQUIP 1.5 MG PO (19:44)
[2024-07-15 22:01] LABS: Glucose - Point of Care 209 mg/dl (70-99)
[2024-07-15] MEDS: XALATAN OPHTHALMIC SOLUTION 1 DROP BOTH EYES (22:01)
[2024-07-15] MEDS: LIPITOR 80 MG PO (22:01)
[2024-07-15] MEDS: MELATONIN 5 MG PO (22:01)
[2024-07-15 23:05] VITALS: BP 122/50
[2024-07-16] MEDS: ANESTHETIC LOZENGE 1 LOZENGE PO ×2 (04:06→22:15)
[2024-07-16 06:00] VITALS: BMI 31.2
[2024-07-16 07:08] VITALS: BP 144/63
[2024-07-16 07:17] LABS: Glucose - Point of Care 110 mg/dl (70-99)
[2024-07-16] MEDS: NOVOLOG FLEXPEN-LOW RESISTANCE SC (09:07)
[2024-07-16] MEDS: DIFLUCAN 100 MG PO (09:09)
[2024-07-16] MEDS: LOPRESSOR 12.5 MG PO (09:09)
[2024-07-16] MEDS: LASIX 40 MG PO (09:09)
[2024-07-16] MEDS: SINGULAIR 10 MG PO (09:09)
[2024-07-16] MEDS: AMARYL 4 MG PO (09:10)
[2024-07-16] MEDS: IMDUR (EXTENDED RELEASE) 30 MG PO (09:10)
[2024-07-16] MEDS: GLUCOPHAGE XR EXTENDED RELEASE 1000 MG PO ×2 (09:10→18:27)
[2024-07-16] MEDS: ASPIR LOW (ENTERIC COATED) 81 MG PO (09:10)
[2024-07-16] MEDS: LANTUS 0.12 UNITS SC (09:11)
[2024-07-16] MEDS: MIRALAX 17 GRAMS PO (09:12)
[2024-07-16] MEDS: NSS (PRESERVATIVE FREE) 10 ML IV (09:12)
[2024-07-16] MEDS: PROTONIX IV 40 MG IV (09:12)
--- NOTE | 2024-07-16 10:09 | W.PN.GS2 ---
Addendum entered and electronically signed by Elgin Alfredo MD 07/16/24 10:34:
I saw and examined the patient independently.
The [employer] Sprayer's note was reviewed and I agree with the note, assessment and plan except where noted below.
Comment: Surgery will sign off for now. Discharge instructions placed. Please call with questions or concerns.
Original Note:
Today's Communication / Plan
-
dispo planning
Assessment / Plan
-
Patient is a 74 yo F p/w GOO from a incisional diaphragmatic hernia following an omental pedicle flap for sternal wound infection
POD#3 s/p robotic incisional diaphragmatic hernia repair with mesh
AFVSS
Recovering well.
JURGEN with light serosanguineous fluid
-- Regular diet
-- Pain control: Tylenol, Tramadol (increased to 100mg which is her home dosage)
-- Home meds
-- DVT: Lovenox
-- GI: PPI
-- JURGEN drain to remain in place for the next 1-2 weeks
-- CM following for [facility] arrangements
-- MiraLAX daily for bowel regimen
Stable for discharge home from surgical standpoint. DC with JURGEN in place. Follow-up with Dr. Vee in 7 to 10 days for JURGEN removal
Subjective Data
-
Date of Service: July 16, 2024
Patient seen and examined at bedside with Dr. Alfredo. Denies n/v. Tolerating diet. Passing flatus, no BM yet. Pain has been an issue, has needed intermittent IV analgesic in addition to PO.
Objective Data
-
Intake and Output
07/15/24 07/16/24 07/17/24
06:59 06:59 06:59
Intake Total 897 / 897 2069 900 / 900
Output Total
Balance 887 / 887 2049 900 / 900
Intake:
Oral fluids 897 / 897 2069 900 900
Output:
Drain Output (Total)
Right Richardson-Reilly
Other:
Number of approximated MODERATE 1 1 1
amounts of urine
Number of approximated LARGE 1
amounts of urine
Vital Signs
Temp Pulse Resp BP Pulse Ox
98.2 F 72 16 144/63 98
07/16/24 07:08 07/16/24 07:08 07/16/24 07:08 07/16/24 07:08 07/16/24 07:08
Lab Results
07/15/24 05:49
07/15/24 05:49
Calcium 8.7 mg/dl (8.4-10.2) 07/15/24 05:49
Total Bilirubin 0.8 mg/dl (0.2-1.3) 07/09/24 23:31
AST 23 U/L (14-36) 07/09/24 23:31
ALT 18 U/L (0-35) 07/09/24 23:31
Alkaline Phosphatase 120 U/L (38-126) 07/09/24 23:31
Total Protein 7.3 g/dl (6.3-8.2) 07/09/24 23:31
Albumin 4.3 g/dl (3.5-5.0) 07/09/24 23:31
Physical Exam
-
NAD AAO x 3
ABD: Soft, nondistended, minimal tenderness on palpation
Skin graft overlying sternal area viable; tenderness on palpation of the area
JURGEN with light serosanguineous fluid
--- NOTE | 2024-07-16 10:11 | PN.DE.MGMTRT ---
Insulin Management
- -
07/16/2024: Diabetes Management follow up
74 year old female who presented to ED c/o N/V and abdominal pain due to an epigastric ventral hernia awaiting hernia repair.
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 Family- and Dtr at bedside
Both report pt was taking Lantus 30 units daily in AM and glimepiride 4 mg in AM and 2mg in PM, uses Dexfarmaciamarket G7 for glucose monitoring at home and routinely sees her PCP for diabetes care. A1C is 8.2%, pt states it was much higher than that, Cr 0.9,
eGFR >60.
Pt awake, alert, oriented, sitting up in chair, still c/o sore throat, able to discuss diabetes out patient regimen, at bedside
POD # 3 s/p robotic incisional diaphragmatic hernia repair with mesh
Diet has been advanced to regular diet this morning, will adjust order to [address]
Glucose trended up to 275 at dinner time, pt had a late lunch and a regular coke drink with her meal, Glimepiride and Metformin were resumed at dinner time. HS glucose was 209, FBG 110 POC. Will increase Lantus to 20 units (was taking 30 units at
home).
Cont Metformin and Glimepiride, 4mg in AM and 2 mg in PM.
Will cont to follow. Discussed with Nurse.
Diabetes History
- -
Type of Diabetes: 2 requiring insulin
Pre-Admission Diabetes Regimen
Lab Results
Hemoglobin A1c 8.2 % (4.0-5.6) H 07/10/24 06:42
Insulin Pump Settings
IP Diabetes Regimen
07/15/24 07/15/24 07/15/24
12:28 17:32 21:59
POC Glucose 169 H 275 H 209 H
07/16/24
07:15
POC Glucose 110 H
Meal type: Breakfast
Meal type: Dinner
Meal type: Lunch
Meal type: Breakfast
Amount consumed: 100%
Amount consumed: 85%
Amount consumed: 100%
Amount consumed: 75%
Patient Education
--- NOTE | 2024-07-16 11:19 | CM ---
Reviewed the chart notes and spoke with the patient at the bedside. Patient anticipates discharged to home today. Spouse will provide transportation. CM continues to be available to patient/family and is monitoring medical plan for needs at
discharge.
Plan: Discharge to home with [facility] services.
[facility] Fax: .
[2024-07-16] MEDS: ULTRAM 100 MG PO ×2 (11:46→18:25)
[2024-07-16] MEDS: NOVOLOG FLEXPEN-LOW RESISTANCE 2 UNITS SC (11:47)
[2024-07-16 11:48] LABS: Glucose - Point of Care 207 mg/dl (70-99)
--- NOTE | 2024-07-16 14:12 | W.PN.HOSP.TC ---
Today's Communication/Plan
-
Pending bowel movement
Assessment / Plan
Assessment / Plan
NAD
Scleral Anicteric
MMM
No JVD
CTABL
RRR, S1/S2
Soft, NT, ND, BS+, JURGEN drain with serosangious fluid
Warm, Dry
AAOx3
Calm
Ventral hernia with gastric outlet obstruction/incarceration
- S/p robotic incisional diaphragmatic hernia repair with mesh
- Discontinue IVF
- Analgesics
- Antiemetics
- Regular diet
-Monitor for BM, If evelops abd pain and no bm concern for ileus,at that time obtain obstruction series
- Start bowel regimen
Diastolic heart failure
- Compensated
- Continue Diuretic po
- Not on MRA nor SGLT2i
- Outpatient cardiology follow up
Benign Hypertension
- Stable.
- Continue usual meds with holding parameters.
Type II diabetes mellitus
- Hold oral home medication
- Insulin sliding scale
- Diabetic diet once start p.o.
- Hemoglobin A1c 8.2
Hypokalemia
- Replete
Asthma without Acute Exacerbation
- Stable. Continue current meds.
- Albuterol PRN
PT/OT home health, case management consulted for visiting nurses/home health
Needs BM prior to DC
Anticipated Discharge: Within 24 hours
Subjective/Interval History
-
Date of Service: July 16, 2024
Seen and examined. No new complaints. No acute overnight events.
Still not have a bowel movement as of yet.
Intermittent abdominal pain. Asking for tramadol
Objective Data
-
Vital Signs:
Vital Signs
Temp Pulse Resp BP Pulse Ox
98.2 F 72 16 144/63 98
07/16/24 07:08 07/16/24 07:08 07/16/24 07:08 07/16/24 07:08 07/16/24 07:08
I&O
07/15/24 07/16/24 07/17/24
06:59 06:59 06:59
Intake Total 897 / 897 2069 1800 / 1800
Output Total
Balance 887 / 887 2049 1800 / 1800
[2024-07-16] MEDS: DILAUDID 0.5 MG IV (14:20)
[2024-07-16 15:00] VITALS: BP 142/64
[2024-07-16 17:13] LABS: Glucose - Point of Care 179 mg/dl (70-99)
[2024-07-16] MEDS: NOVOLOG FLEXPEN-LOW RESISTANCE 1 UNITS SC (18:25)
[2024-07-16] MEDS: REQUIP 1.5 MG PO (18:26)
[2024-07-16] MEDS: AMARYL 2 MG PO (18:27)
[2024-07-16] MEDS: LOVENOX 40 MG SC (18:28)
[2024-07-16 21:12] VITALS: BP 95/62
[2024-07-16 21:29] LABS: Glucose - Point of Care 151 mg/dl (70-99)
[2024-07-16] MEDS: PROTONIX 40 MG PO (22:09)
[2024-07-16] MEDS: MELATONIN 5 MG PO (22:09)
[2024-07-16] MEDS: SENOKOT-S 1 TABLET PO (22:10)
[2024-07-16] MEDS: XALATAN OPHTHALMIC SOLUTION 1 DROP BOTH EYES (22:10)
[2024-07-16] MEDS: LIPITOR 80 MG PO (22:10)
[2024-07-16] MEDS: LOPRESSOR PO (22:19)
[2024-07-16 23:10] VITALS: BP 124/49
[2024-07-17 06:00] VITALS: BMI 31.2
[2024-07-17 07:10] VITALS: BP 141/55
[2024-07-17 07:31] LABS: Hematocrit 27.8 % (37.0-47.0); Hemoglobin 8.9 g/dL (12.0-16.0); Mean Corpuscular Hgb 27.6 pg (27.0-31.0); Mean Corpuscular Volume 86.1 fL (81.0-99.0); Mean Platelet Volume 10.1 fL (7.4-10.4); Platelet Count 251 10^3/uL (130-400); Red Blood Cell Count 3.23 10^6/uL (4.20-5.40); Red Cell Dist. Width 14.2 % (11.5-14.5); White Blood Cell Count 8.3 10^3/uL (4.8-10.8)
[2024-07-17 08:05] LABS: Blood Urea Nitrogen 13 mg/dl (7-17); Carbon Dioxide 26 mmol/L (22-30); Chloride 105 mmol/L (98-107); Estimated Creatinine Clearance 60 ml/min; Glucose 121 mg/dl (70-99); Sodium 138 mmol/L (135-145); eGFR > 60.00
[2024-07-17 08:11] LABS: Potassium 4.7 mmol/L (3.5-5.1)
[2024-07-17 08:11] LABS: Glucose - Point of Care 111 mg/dl (70-99)
[2024-07-17] MEDS: AMARYL 4 MG PO (08:13)
[2024-07-17] MEDS: IMDUR (EXTENDED RELEASE) 30 MG PO (08:13)
[2024-07-17] MEDS: LASIX 40 MG PO (08:13)
[2024-07-17] MEDS: GLUCOPHAGE XR EXTENDED RELEASE 1000 MG PO (08:13)
[2024-07-17] MEDS: SENOKOT-S 1 TABLET PO (08:14)
[2024-07-17] MEDS: DIFLUCAN 100 MG PO (08:14)
[2024-07-17] MEDS: PROTONIX 40 MG PO (08:14)
[2024-07-17] MEDS: NOVOLOG FLEXPEN-LOW RESISTANCE SC (08:14)
[2024-07-17] MEDS: SINGULAIR 10 MG PO (08:14)
[2024-07-17] MEDS: ASPIR LOW (ENTERIC COATED) 81 MG PO (08:14)
[2024-07-17] MEDS: MIRALAX PO (08:15)
[2024-07-17] MEDS: LOPRESSOR 12.5 MG PO (08:15)
[2024-07-17] MEDS: LANTUS 0.2 UNITS SC (08:16)
[2024-07-17 11:56] LABS: Glucose - Point of Care 208 mg/dl (70-99)
[2024-07-17] MEDS: ULTRAM 100 MG PO (11:57)
[2024-07-17] MEDS: NOVOLOG FLEXPEN-LOW RESISTANCE 2 UNITS SC (11:58)
--- NOTE | 2024-07-17 12:12 | PTCARENOTE ---
Patient AAOx3, ambulating in room. Patient currently sitting in chair eating lunch. Patient c/o abdominal pain, Ultram given with good relief. Spouse at bedside. JURGEN drain care reviewed with patient.
--- NOTE | 2024-07-17 12:49 | CM ---
CM met with pt and spouse
Plan for home with [facility]
Call with [facility] and likely plan for SOC tomorrow, awaiting finalization of scheduling
If not tomorrow, then Friday
No other dc needs noted
IMM verbally reviewed, copy provided
Discharge Disposition- home with [facility], family transport
Fax- .
[2024-07-17 14:34] VITALS: BP 126/54
--- NOTE | 2024-07-17 15:13 | PTCARENOTE ---
Discharge instructions reviewed with patient and spouse. Patient demonstrated emptying and measure fluid from JURGEN drain. RN demonstrated stripping JURGEN tube, patient and spouse verbalized understanding. Supplies sent with patient.
--- NOTE | 2024-07-17 15:44 | W.PN.HOSP.TC ---
Today's Communication/Plan
-
Discharge home
More than 30 minutes spent in discharge including
Final examination of the patient
Summarizing hospital stay
Instructions for continuing care to all relevant caregivers
Preparation of discharge records, prescriptions, and referral forms
Total time spent (in minutes): 33min
Assessment / Plan
Assessment / Plan
NAD
Scleral Anicteric
MMM
No JVD
CTABL
RRR, S1/S2
Soft, NT, ND, BS+, JURGEN drain with serosangious fluid
Warm, Dry
AAOx3
Calm
Ventral hernia with gastric outlet obstruction/incarceration
- S/p robotic incisional diaphragmatic hernia repair with mesh
- Discontinue IVF
- Analgesics
- Antiemetics
- Regular diet
-Monitor for BM, If evelops abd pain and no bm concern for ileus,at that time obtain obstruction series
- Start bowel regimen
Diastolic heart failure
- Compensated
- Continue Diuretic po
- Not on MRA nor SGLT2i
- Outpatient cardiology follow up
Benign Hypertension
- Stable.
- Continue usual meds with holding parameters.
Type II diabetes mellitus
- Hold oral home medication
- Insulin sliding scale
- Diabetic diet once start p.o.
- Hemoglobin A1c 8.2
Hypokalemia
- Replete
Asthma without Acute Exacerbation
- Stable. Continue current meds.
- Albuterol PRN
PT/OT home health, case management consulted for visiting nurses/home health
Discharge home
Anticipated Discharge: Today ( )
Subjective/Interval History
-
Date of Service: July 17, 2024
Seen and examined. No new complaints.
Had 2 bowel movements overnight formed
Tolerating diet well
Objective Data
-
Labs:
Laboratory Results
07/17/24
06:05
WBC 8.3
Hgb 8.9 L
Hct 27.8 L
Plt Count 251 D
Sodium 138
Potassium 4.7
Chloride 105
Carbon Dioxide 26
BUN 13
Creatinine 0.8
Glucose 121 H
Calcium 9.0
Vital Signs:
Vital Signs
Temp Pulse Resp BP Pulse Ox
98.2 F 61 16 126/54 98
07/17/24 14:34 07/17/24 14:34 07/17/24 14:34 07/17/24 14:34 07/17/24 14:34
I&O
07/16/24 07/17/24 07/18/24
06:59 06:59 06:59
Intake Total 2069 1800 / 1800 660 / 660
Output Total
Balance 2049 1795 / 1795 660 / 660
--- NOTE | 2024-07-17 15:45 | W.DCSUMMARY ---
Discharge Summary
Discharge Data
Date of Admission: 07/10/24
Date of Discharge: 07/17/24
-
Pending Results: No
Hospital Course
74y F with PMH significant for ASCVD, hypertension and DM-II
Presented with abdominal pain nausea vomiting with a known history of ventral hernia and concern with evidence of contained gastric antrum however without evidence of strangulation/incarceration though there was still concern for gastric outlet
obstruction. Therefore, therefore surgery evaluated recommended operative intervention withrobotic incisional diaphragmatic hernia repair with mesh. Due to significant history of surgery in 2023 with hardware removal and flap formation surgery was
pushed back until Dr. Mandujano was available to assist if his assistance was needed with the flap. A drain was placed and surgery was successfully completed. Will need outpatient follow-up with surgery and continue drain care instructions are as
below.
Discharge Plan
-
Patient Disposition: Home with Home Care
Discharge Diagnosis/Procedures: Ventral hernia repair
Condition: Good
Diet: Low Fat, Low Cholesterol, 2 Gram Sodium and Diabetic, Carb Controlled
Activity: As tolerated and No strenuous activity
Blood Work: CBC in 1 week with PCP
Activity Restrictions/Additional Instructions:
Presented with abdominal pain nausea vomiting with a known history of ventral hernia and concern with evidence of contained gastric antrum however without evidence of strangulation/incarceration though there was still concern for gastric outlet
obstruction. Therefore, therefore surgery evaluated recommended operative intervention withrobotic incisional diaphragmatic hernia repair with mesh. Due to significant history of surgery in 2023 with hardware removal and flap formation surgery was
pushed back until Dr. Mandujano was available to assist if his assistance was needed with the flap. A drain was placed and surgery was successfully completed. Will need outpatient follow-up with surgery and continue drain care instructions are as
below.
JURGEN DRAIN CARE INSTRUCTIONS
General Information:
Drains help to keep fluid from collecting by removing the extra blood and fluid from under the skin. A drain is temporary. It stays in place until the drainage has slowed down or stopped. Your doctor or nurse will decide when each drain should be
removed: This is usually after each drain has 30cc or less in 24 hours for 2 days in a row. When this happens, you should call the [facility] to schedule an appointment with the nurses to have it/them removed. This is usually not painful
and only takes a few seconds.
How do I care for the drains at home?
Pin your drains to your clothing by using a safety pin through the plastic loop on the top of the bulb. If the drain is not attached to your clothing, it may pull out from under your skin. Also, a drain usually feels more comfortable when it�s
attached. To care for the drain at home, you will have to empty the drain, ``strip�� the drain tubing, and change the dressing if applicable. See the following pages for instructions on how to do this.
What problems may I have with my drain?
� The bulb is not compressed- The bulb may not be squeezed tightly enough, the plug may not be closed securely, or the tube has slipped out a bit and is leaking. Follow the instructions on how to empty the drain.
If the bulb remains expanded, then notify your doctor or nurse during business hours.
� No drainage or sudden decrease in amount of drainage- This is usually due to clots in the drain. Follow the instructions on how to strip the drain tubing.
� The tube accidentally falls out- If this happens, place a dry gauze dressing over the drain site and notify your doctor or nurse during business hours.
� Increased redness, swelling, or heat around the tube insertion site- This may be a sign of infection. Take your temperature: if it is higher than 101F or 38.8C, call your doctor or nurse immediately. Otherwise, notify your doctor or nurse during
business hours and keep the dressing clean and dry.
Post-Surgical Drain Care:
After surgery, you will have one or two drains, called a Richardson-Reilly (JURGEN) drain, placed near the incision. This device collects fluid, under suction, from your surgical area. The drain promotes healing and recovery, and reduces the chance of
infection. The drain will be in place until the drainage slows enough for your body to reabsorb fluid on its own. While you are hospitalized the nursing staff will care for the drain and teach you to continue to do so at home.
How to Empty Your JURGEN Drain
Note: Wash your hands thoroughly before emptying your drain(s).
� Have the plastic measuring cup from the hospital ready to collect and measure the drainage. Please measure the output at the same two times every 24 hours and record the amount.
� Unpin the drain from your clothing.
Open the top of the drain. Turn the drain upside down and squeeze the contents of the bulb into the measuring cup. Be sure to empty the bulb as completely as possible. Flush the contents in the toilet.
� Use the drain output log chart to record the amount of drainage twice a day or any time the bulb is full. Record the total for 24 hours for each drain you have.
� If you have more than one drain, remember to record the drainage from each drain separately.
� To prevent infection, do not let the stopper or top of the bottle touch the measuring cup or any other surface.
� Use one hand to squeeze all of the air from the drain. With the drain still squeezed, use your other hand to replace the top. This creates the suction necessary to remove the fluids from your body.
� Pin the drain back on your clothing to avoid pulling it out accidently.
� Wash your hands again. Remember to wash your hands before and after the procedure to reduce the risk of infection.
Stripping the Tube
Often the tube may become blocked with products of healing or clot. If you do not have drainage, then:
� Hold the tube near where it is inserted in to the skin with your one hand.
� Use the other hand to hold a pencil and gently squeeze the tubing with the pencil while moving it down toward the drain away from your skin. This forces the more sold material into the bulb for better drainage.
� Repeat as necessary to start the draining again.
Removal of the Tube
� The tube may be removed once a single tube output is less than 30cc (1 oz.) for 24 hours. Please call the office to arrange a time to come in to have the drain removed.
� Please call the office [phone] if the output becomes thicker or has a bad odor or if you have any questions or concerns
Referrals:
Dion Vee MD [Active] - in one to two weeks
Merry Cook DO [Family Provider] -
Prescriptions:
New
Sore Throat (phenol) 1.4 % Aerosol,Sycamore
3 spray PO Q2HPRN PRN (Reason: sore ththroat) Qty: 30 0RF
Chloraseptic Sore Throat 6-10 mg Lozenge
1 lavonne PO Q4HPRN PRN (Reason: sore throat) Qty: 12 0RF
tramadol 50 mg Tablet
100 mg PO Q6HPRN PRN (Reason: severe pain) Qty: 30 0RF
pantoprazole 40 mg Tablet,Delayed Release (Dr/Ec)
40 mg PO BID Qty: 28 0RF
Continued
cyclobenzaprine 10 mg Tablet
10 mg PO HS
latanoprost 0.005 % Drops
1 drp BOTH EYES HS
isosorbide mononitrate 30 mg Tablet Extended Release 24 Hr
30 mg PO DAILY
fexofenadine 180 mg Tablet
180 mg PO DAILY
ropinirole 0.25 mg Tablet
1.5 mg PO DAILY@1900
ezetimibe 10 mg Tablet
10 mg PO DAILY
omega-3 acid ethyl esters [Lovaza] 1 gram Capsule
1 cap PO QPM
acetaminophen [Tylenol Extra Strength] 500 mg Tablet
1,000 mg PO Q6HPRN PRN (Reason: mild pain)
cholecalciferol (vitamin D3) [Vitamin D3] 50 mcg (2,000 unit) Capsule
50 mcg PO DAILY
PreserVision AREDS-2 250-90-40-1 mg Capsule
1 cap PO BID
albuterol sulfate 90 mcg/actuation Hfa Aerosol Inhaler
2 puff inhalation R QIDPRN PRN (Reason: sob/wheezing)
pantoprazole 40 mg tablet,delayed release (DR/EC)
40 mg PO DAILY
aspirin 81 mg Tablet,Delayed Release (Dr/Ec)
81 mg PO DAILY
atorvastatin 80 mg tablet
80 mg PO HS
metoprolol tartrate 25 mg tablet
12.5 mg PO BID
glimepiride 2 mg Tablet
2 mg PO QPM
ferrous sulfate [FeroSul] 325 mg (65 mg iron) Tablet
325 mg PO DAILY
glimepiride 4 mg Tablet
4 mg PO DAILY
potassium chloride 20 mEq Tablet Extended Release
20 meq PO DAILY
cyanocobalamin (vitamin B-12) 1,000 mcg/mL Solution
1,000 mcg IM QMONTH
Rx Instructions:
Next dose due first week of August
fluticasone propionate [Flonase Allergy Relief] 50 mcg/actuation [place]camore,Suspension
1 spray INTRANASAL DAILY
furosemide 40 mg tablet
40 mg PO DAILY
Rx Instructions:
40mg daily and additional 40mg every other day
fluconazole 100 mg Tablet
100 mg PO DAILY
metformin 500 mg Tablet
500 mg PO TID
montelukast [Singulair] 10 mg Tablet
10 mg PO DAILY
ondansetron 4 mg Tablet,Disintegrating
4 mg PO Q6H PRN (Reason: nausea)
insulin glargine 100 unit/mL Cartridge
30 unit SC DAILY
omega-3 acid ethyl esters [Lovaza] 1 gram Capsule
1 cap PO DAILY
(DME) stiQRd G7 Sensor Device
MISCELLANEOUS
Jardiance 25 mg Tablet
25 mg PO DAILY
Discontinued
montelukast [Singulair] 10 mg Tablet
10 mg PO DAILY
tramadol 50 mg Tablet
100 mg PO BID
fexofenadine 180 mg Tablet
180 mg PO DAILY
Ozempic 0.25 mg or 0.5 mg (2 mg/3 mL) Pen Injector
0.25 mg SC QWEEK
Rx Instructions:
for 4 weeks
Discharge Orders:
Discharge Patient (As Directed); Ordered 07/17/24
Ordered By: Dayton Cabrera
Discharge Date and Time
Discharge Date/Time: 07/17/24 15:31
Print Language: CZECH
== END 2024-07-17 15:31 | disposition home health service (06) | DRG 327 ==
LOC: 2 SOUTH 03:42
PROVIDERS: General Practice; Surgery; ADMITTING PHYSICIAN Hospitalist; ATTENDING PHYSICIAN Hospitalist; CONSULT PHYSICIAN Internal Medicine; EMERGENCY PHYSICIAN Student in an Organized Health Care Education/Training Program; FAMILY PHYSICIAN Family Medicine; OTHER PHYSICIAN Surgery
PROC: 0BQT4ZZ Repair Diaphragm, Percutaneous Endoscopic Approach (ICD-10-PCS; 2024-07-13)
PROC: 0WUF4JZ Supplement Abdominal Wall with Synthetic Substitute, Percutaneous Endoscopic Approach (ICD-10-PCS; 2024-07-13)
PROC: 8E0W4CZ Robotic Assisted Procedure of Trunk Region, Percutaneous Endoscopic Approach (ICD-10-PCS; 2024-07-13)
DX: K44.0 Diaphragmatic hernia with obstruction, without gangrene (principal); I50.32 Chronic diastolic (congestive) heart failure; K43.0 Incisional hernia with obstruction, without gangrene; K44.9 Diaphragmatic hernia without obstruction or gangrene; E11.9 Type 2 diabetes mellitus without complications; I25.10 Atherosclerotic heart disease of native coronary artery without angina pectoris; I11.0 Hypertensive heart disease with heart failure; J45.909 Unspecified asthma, uncomplicated; G47.33 Obstructive sleep apnea (adult) (pediatric); K22.70 Barrett's esophagus without dysplasia; K21.9 Gastro-esophageal reflux disease without esophagitis; D50.9 Iron deficiency anemia, unspecified; E66.9 Obesity, unspecified; Z68.31 Body mass index [BMI] 31.0-31.9, adult; G25.81 Restless legs syndrome; E78.00 Pure hypercholesterolemia, unspecified; I49.5 Sick sinus syndrome; E87.6 Hypokalemia; Z96.651 Presence of right artificial knee joint; Z96.611 Presence of right artificial shoulder joint; Z95.5 Presence of coronary angioplasty implant and graft; Z95.1 Presence of aortocoronary bypass graft; Z95.0 Presence of cardiac pacemaker; Z88.2 Allergy status to sulfonamides; Z79.899 Other long term (current) drug therapy; Z79.82 Long term (current) use of aspirin; Z79.84 Long term (current) use of oral hypoglycemic drugs; Z79.4 Long term (current) use of insulin; Z79.85 Long-term (current) use of injectable non-insulin antidiabetic drugs
CPT/HCPCS: 71045; 80048; 80053; 82962; 83036; 83690; 85025; 85027; 85610; 85730; 86803; 86850; 86900; 86901; 96365; 96366; 96375; 97162; 97166; 97535; 99284; C1713